=== PATIENT | female | born 1950 | race Caucasian/White ===

== ENCOUNTER 2019-10-13 10:14 | Inpatient (IN) | payer BC, MEDICARE ==
[~2019-10-13] VITALS: Ht 149.9 cm; Wt 60.5 kg
[~2019-10-13 10:14] MED LIST: ASPI-1393 PO; CLON0.3T PO; FURO-151 MT; INSU200I4 SQ; NIFE90TA34 PO; SIMV40TA5 PO
[2019-10-13] MEDS ORDERED: ASPIRIN 325MG TABLET PO NR (11:30)
[2019-10-13] MEDS ORDERED: HYDRALAZINE 20MG/ML VIAL IV NR (11:30)
[2019-10-13 11:42] LABS: BASOPHILS % 0.7 % (0.0-2.0); CHLORIDE 116 mEq/L (98-107); HEMATOCRIT. 30.6 % (36.0-48.0); LYMPHOCYTES % 7.3 % (20.0-50.0); MEAN CORPUSCULAR HEMOGLOBIN 28.8 pg (28.0-32.0); MEAN PLATELET VOLUME 8.3 fl (7.4-10.4); MONOCYTES % 2.7 % (2.0-8.0); NEUTROPHILS % 89.3 % (40.0-76.0); PLATELET 332 x1000/uL (130-400); RED BLOOD CELL COUNT 3.48 mill/uL (4.2-5.4); RED CELL DISTRIBUTION WIDTH 15.3 % (11.6-14.6)
[2019-10-13] MEDS ORDERED: ONDANSETRON HCL 4MG/2ML INJ IV ONE (11:45)
[2019-10-13] MEDS ORDERED: CLONIDINE 0.1MG TABLET PO PRN (14:15)
[2019-10-13] MEDS ORDERED: NA PHOS,M-B/NA PHOS,DI-BA ENEMA 118ML PR PRN (14:15)
[2019-10-13] MEDS ORDERED: GUAIFENESIN 200MG/10ML SUGAR FREE UDC PO PRN (14:15)
[2019-10-13] MEDS ORDERED: DIPHENHYDRAMINE 50MG/ML VIAL IV PRN (14:15)
[2019-10-13] MEDS ORDERED: DEXTROSE 50% WATER 50ML SYRINGE IV PRN (14:15)
[2019-10-13] MEDS ORDERED: IPRATROPIUM/ALBUTEROL 0.5-3(2.5)MG/3ML NEB NEB PRN (14:15)
[2019-10-13] MEDS ORDERED: HYDROCODONE/ACETAMINOPHEN 5/325MG TABLET PO PRN (14:15)
[2019-10-13] MEDS ORDERED: ACETAMINOPHEN 650MG SUPP PR PRN (14:15)
[2019-10-13] MEDS ORDERED: LORAZEPAM 0.5MG TABLET PO PRN (14:15)
[2019-10-13] MEDS: FAMOTIDINE 20MG/2ML VIAL IV SCH (16:30)
[2019-10-13] MEDS: DEXTROSE 5% WATER 1,000 ML IV SCH (16:31)
[2019-10-13] MEDS: NIFEDIPINE XL 90MG TAB PO SCH (16:36)
[2019-10-13 17:08] VITALS: BP 200/152
[2019-10-13] MEDS: INSULIN LISPRO 100 UNITS/ML SUBCUT SCH ×2 (17:15→20:14)
[2019-10-13] MEDS ORDERED: HYDRALAZINE 20MG/ML VIAL IV PRN (17:19)
[2019-10-13] MEDS: BLOOD SUGAR DIAGNOSTIC STRIP TEST SCH ×2 (17:26→20:18)
[2019-10-13] MEDS: ACETAMINOPHEN 325MG TABLET PO PRN (17:33)
[2019-10-13] MEDS: ENOXAPARIN 30MG/0.3ML SYR SUBCUT SCH (18:19)
[2019-10-13] MEDS: ONDANSETRON HCL 4MG/2ML INJ IV PRN (19:58)
[2019-10-13 20:00] VITALS: BP 172/65
[2019-10-13] MEDS: DOCUSATE SODIUM 100MG CAPSULE PO PRN (20:30)
[2019-10-13 20:35] LABS: CLARITY URINE CLOUDY (CLEAR); COLOR URINE YELLOW (YELLOW); KETONES URINE TRACE (NEGATIVE); LEUKOCYTE ESTERASE URINE TRACE (NEGATIVE); NITRITE URINE NEGATIVE (NEGATIVE); OCCULT BLOOD URINE TRACE (NEGATIVE); PH URINE 5.5 (4.5-8.0); PROTEIN URINE 4+ (NEGATIVE); SPECIFIC GRAVITY URINE 1.018 (1.005-1.030); UROBILINOGEN URINE 0.2 E.U./dL (0.2-1.0)
[2019-10-13 20:47] LABS: CANNABINOID URINE SCREEN NEGATIVE (NEGATIVE); METHADONE URINE SCREEN NEGATIVE (NEGATIVE); OPIATES URINE SCREEN NEGATIVE (NEGATIVE); PHENCYCLIDINE URINE SCREEN NEGATIVE (NEGATIVE)
[2019-10-13 20:48] LABS: *AMPHETAMINES SCREEN URINE NEGATIVE (NEGATIVE); *BARBITURATES SCREEN URINE NEGATIVE (NEGATIVE); *BENZODIAZEPINES SCREEN URINE NEGATIVE (NEGATIVE); *COCAINE SCREEN URINE NEGATIVE (NEGATIVE)
[2019-10-13 21:35] VITALS: BP 134/47
[2019-10-14] VITALS (7 sets, daily range): BP systolic 103–155; BP diastolic 47–66
[2019-10-14] MEDS: ENALAPRIL 2.5MG/2ML VIAL 2ML IV SCH ×3 (00:18→12:00)
[2019-10-14 01:15] LABS: CREATINE KINASE MB FRACTION 2.1 ng/mL (0.5-3.6)
[2019-10-14] MEDS: ACETAMINOPHEN 325MG TABLET PO PRN (04:44)
[2019-10-14] MEDS: DEXTROSE 5% WATER 1,000 ML IV SCH (06:13)
[2019-10-14] MEDS: BLOOD SUGAR DIAGNOSTIC STRIP TEST SCH ×4 (06:25→21:50)
[2019-10-14] MEDS: INSULIN LISPRO 100 UNITS/ML SUBCUT SCH ×4 (06:25→21:00)
[2019-10-14 07:38] LABS: EOSINOPHILS % 2.2 % (0.0-5.0); HEMATOCRIT. 26.5 % (36.0-48.0); HEMOGLOBIN. 8.8 g/dL (12.0-16.0); LYMPHOCYTES % 23.3 % (20.0-50.0); MEAN CORPUSCULAR HEMOGLOBIN 29.2 pg (28.0-32.0); MEAN CORPUSCULAR VOLUME 87.4 fL (81.0-99.0); MEAN PLATELET VOLUME 7.6 fl (7.4-10.4); NEUTROPHILS % 65.5 % (40.0-76.0); PLATELET 261 x1000/uL (130-400); RED BLOOD CELL COUNT 3.03 mill/uL (4.2-5.4); RED CELL DISTRIBUTION WIDTH 15.4 % (11.6-14.6)
[2019-10-14 07:49] LABS: CHLORIDE 109 mEq/L (98-107)
[2019-10-14 08:03] LABS: LDL CHOLESTEROL 90 mg/dL (5-100)
[2019-10-14 08:04] LABS: CREATINE KINASE 131 IU/L (26-192); CREATINE KINASE MB FRACTION 2.1 ng/mL (0.5-3.6); HDL CHOLESTEROL 78 mg/dL (40-59)
[2019-10-14] MEDS: ASPIRIN 81MG EC TABLET PO SCH (08:49)
[2019-10-14] MEDS: NIFEDIPINE XL 90MG TAB PO SCH (08:49)
[2019-10-14] MEDS: FAMOTIDINE 20MG/2ML VIAL IV SCH (08:49)
[2019-10-14] MEDS: LACTULOSE 20G/30ML UDC PO SCH (14:02)
[2019-10-14] MEDS: CLONIDINE 0.1MG TABLET PO SCH ×2 (14:03→23:40)
[2019-10-14] MEDS ORDERED: LEVOFLOXACIN 750MG PREMIX 150 ML IV NR (16:00)
[2019-10-14] MEDS: ONDANSETRON HCL 4MG/2ML INJ IV PRN ×2 (17:08→21:50)
[2019-10-14] MEDS: SODIUM CHLORIDE 0.45% 1,000 ML IV SCH (17:08)
[2019-10-14] MEDS: ENOXAPARIN 30MG/0.3ML SYR SUBCUT SCH (17:09)
[2019-10-15] VITALS: BP 142/62
[2019-10-15 04:00] VITALS: BP 149/58
[2019-10-15] MEDS: SODIUM CHLORIDE 0.45% 1,000 ML IV SCH ×3 (04:06→22:32)
[2019-10-15] MEDS: BLOOD SUGAR DIAGNOSTIC STRIP TEST SCH ×4 (05:32→20:45)
[2019-10-15] MEDS: CLONIDINE 0.1MG TABLET PO SCH ×3 (05:32→21:50)
[2019-10-15] MEDS: INSULIN LISPRO 100 UNITS/ML SUBCUT SCH ×4 (05:32→21:00)
[2019-10-15 06:02] LABS: BASOPHILS % 0.9 % (0.0-2.0); EOSINOPHILS % 1.7 % (0.0-5.0); HEMATOCRIT. 26.7 % (36.0-48.0); HEMOGLOBIN. 8.8 g/dL (12.0-16.0); LYMPHOCYTES % 17.4 % (20.0-50.0); MEAN CORPUSCULAR HEMOGLOBIN 28.6 pg (28.0-32.0); MEAN CORPUSCULAR VOLUME 87.2 fL (81.0-99.0); MEAN PLATELET VOLUME 7.2 fl (7.4-10.4); PLATELET 228 x1000/uL (130-400); RED BLOOD CELL COUNT 3.06 mill/uL (4.2-5.4); RED CELL DISTRIBUTION WIDTH 15.3 % (11.6-14.6)
[2019-10-15 08:00] VITALS: BP 153/57
[2019-10-15] MEDS: LACTULOSE 20G/30ML UDC PO SCH (09:00)
[2019-10-15] MEDS: FAMOTIDINE 20MG/2ML VIAL IV SCH (09:56)
[2019-10-15] MEDS: NIFEDIPINE XL 90MG TAB PO SCH (09:56)
[2019-10-15] MEDS: MAGNESIUM/ALUMINUM HYDROXIDE/SIMETHICONE 30ML UDC PO PRN (09:56)
[2019-10-15] MEDS: ASPIRIN 81MG EC TABLET PO SCH (09:56)
[2019-10-15 12:00] VITALS: BP 122/56
[2019-10-15] MEDS ORDERED: MAGNESIUM 1 G PREMIX 100 ML IV NR (13:00)
[2019-10-15 16:00] VITALS: BP 125/58
[2019-10-15] MEDS: ENOXAPARIN 30MG/0.3ML SYR SUBCUT SCH (18:00)
[2019-10-15 18:07] LABS: HEMATOCRIT 25.8 % (36.0-48.0); HEMOGLOBIN 8.4 g/dL (12.0-16.0)
[2019-10-15 18:45] LABS: TOTAL IRON BINDING CAPACITY 229 ug/dL (250-450)
[2019-10-15] MEDS: DOCUSATE SODIUM 100MG CAPSULE PO PRN (18:45)
[2019-10-15 20:00] VITALS: BP 164/46
[2019-10-16] VITALS: BP 126/45
[2019-10-16] MEDS: ONDANSETRON HCL 4MG/2ML INJ IV PRN (03:46)
[2019-10-16] MEDS: BLOOD SUGAR DIAGNOSTIC STRIP TEST SCH ×3 (06:45→16:54)
[2019-10-16] MEDS: INSULIN LISPRO 100 UNITS/ML SUBCUT SCH ×3 (07:15→16:55)
[2019-10-16 07:21] LABS: HEMATOCRIT 26.1 % (36.0-48.0); MEAN CORPUSCULAR HEMOGLOBIN 29.9 pg (28.0-32.0); MEAN CORPUSCULAR VOLUME 86.8 fL (81.0-99.0); PLATELET 217 x1000/uL (130-400); RED BLOOD CELL COUNT 3.01 mill/uL (4.2-5.4); RED CELL DISTRIBUTION WIDTH 15.1 % (11.6-14.6)
[2019-10-16 08:00] VITALS: BP 168/48
[2019-10-16] MEDS: CLONIDINE 0.1MG TABLET PO SCH ×3 (08:12→17:32)
[2019-10-16] MEDS: LACTULOSE 20G/30ML UDC PO SCH (09:00)
[2019-10-16] MEDS: FAMOTIDINE 20MG/2ML VIAL IV SCH (09:38)
[2019-10-16] MEDS: ASPIRIN 81MG EC TABLET PO SCH (09:38)
[2019-10-16] MEDS: NIFEDIPINE XL 90MG TAB PO SCH (09:38)
[2019-10-16] MEDS: DOCUSATE SODIUM 100MG CAPSULE PO PRN (09:38)
[2019-10-16] MEDS: MAGNESIUM/ALUMINUM HYDROXIDE/SIMETHICONE 30ML UDC PO PRN (09:38)
[2019-10-16] MEDS: SODIUM CHLORIDE 0.45% 1,000 ML IV SCH (09:41)
[2019-10-16] MEDS ORDERED: LEVOFLOXACIN 500MG PREMIX 100 ML IV SCH (11:00)
[2019-10-16 12:00] VITALS: BP 179/62
[2019-10-16] MEDS: FERROUS SULFATE 325MG TABLET PO SCH ×2 (12:02→17:32)
[2019-10-16] MEDS ORDERED: METOPROLOL TARTRATE 25MG TABLET PO NR (15:00)
[2019-10-16 16:00] VITALS: BP 123/97
[2019-10-16] MEDS ORDERED: SULFAMETHOXAZOLE/TRIMETHOPRIM 800/160MG TABLET PO SCH (16:00)
[2019-10-16 17:03] VITALS: BP 122/52
[2019-10-16] MEDS ORDERED: METOPROLOL TARTRATE 25MG TABLET PO SCH (21:00)
== END 2019-10-16 18:18 | disposition home or self-care (01) | DRG 291 ==
LOC: ER 10:14 → 5WST 12:07 → SUPCPDRO 13:30 → ENRESERV 15:28
PROVIDERS: ADMIT Internal Medicine; ATTEND Internal Medicine
DX: I13.0 Hypertensive heart and chronic kidney disease with heart failure and stage 1 through stage 4 chronic kidney disease, or unspecified chronic kidney disease (principal); I50.33 Acute on chronic diastolic (congestive) heart failure; N17.9 Acute kidney failure, unspecified; I16.1 Hypertensive emergency; N39.0 Urinary tract infection, site not specified; I31.3 Pericardial effusion (noninflammatory); D64.9 Anemia, unspecified; E11.22 Type 2 diabetes mellitus with diabetic chronic kidney disease; E78.5 Hyperlipidemia, unspecified; E86.0 Dehydration; F41.9 Anxiety disorder, unspecified; N18.9 Chronic kidney disease, unspecified; K57.90 Diverticulosis of intestine, part unspecified, without perforation or abscess without bleeding; I44.0 Atrioventricular block, first degree; I25.10 Atherosclerotic heart disease of native coronary artery without angina pectoris; I25.2 Old myocardial infarction; Z79.899 Other long term (current) drug therapy; Z82.49 Family history of ischemic heart disease and other diseases of the circulatory system; Z87.442 Personal history of urinary calculi; Z79.82 Long term (current) use of aspirin
CPT/HCPCS: 36415; 71045; 74176; 76770; 80048; 80061; 80305; 81003; 82270; 82550; 82553; 82962; 83540; 83550; 83735; 83880; 84439; 84443; 84484; 85014; 85018; 85027; 87077; 87186; 87804; 93005; 99285; C1893; J0360; J1650; J1956; J2405; J3475; J3490; J7070

== ENCOUNTER 2019-11-25 12:09 | Emergency (ER) | payer BC, MEDICARE ==
[~2019-11-25] VITALS: Ht 149.9 cm; Wt 67.0 kg
[~2019-11-25 12:09] MED LIST changes: -ASPI-1393 PO; +ASPI-1497 PO; -CLON0.3T PO; -FURO-151 MT; -NIFE90TA34 PO; +NIFE90TA60 PO; +SIMV-46 PO; -SIMV40TA5 PO
[2019-11-25 15:16] LABS: BASOPHILS % 0.4 % (0.0-2.0); EOSINOPHILS % 3.6 % (0.0-5.0); HEMATOCRIT. 29.9 % (36.0-48.0); HEMOGLOBIN. 9.9 g/dL (12.0-16.0); LYMPHOCYTES % 26.2 % (20.0-50.0); MEAN CORPUSCULAR HEMOGLOBIN 28.4 pg (28.0-32.0); MEAN CORPUSCULAR VOLUME 85.9 fL (81.0-99.0); MEAN PLATELET VOLUME 7.9 fl (7.4-10.4); MONOCYTES % 7.4 % (2.0-8.0); NEUTROPHILS % 62.4 % (40.0-76.0); PLATELET 266 x1000/uL (130-400); RED BLOOD CELL COUNT 3.48 mill/uL (4.2-5.4); RED CELL DISTRIBUTION WIDTH 15.8 % (11.6-14.6)
[2019-11-25 15:17] LABS: INR 0.9; PROTHROMBIN TIME 9.4 sec (9.6-11.0)
[2019-11-25 15:20] LABS: CHLORIDE 114 mEq/L (98-107)
[2019-11-25] MEDS ORDERED: SODIUM POLYSTYRENE SULFONATE 15 G/60 ML BOT PO ONE (16:15)
[2019-11-25 16:46] VITALS: BP 129/61
== END 2019-11-25 16:50 | disposition home or self-care (01) ==
LOC: ER 12:09
DX: R79.9 Abnormal finding of blood chemistry, unspecified (principal); E11.9 Type 2 diabetes mellitus without complications; I10 Essential (primary) hypertension; Z79.899 Other long term (current) drug therapy; Z90.49 Acquired absence of other specified parts of digestive tract; Z79.4 Long term (current) use of insulin; Z79.82 Long term (current) use of aspirin
CPT/HCPCS: 36415; 71045; 80053; 82962; 85025; 93005; 99284

== ENCOUNTER 2019-12-25 03:10 | Inpatient (IN) | payer BC, MEDICARE ==
[~2019-12-25] VITALS: Ht 149.9 cm; Wt 92.1 kg
[2019-12-25] MEDS ORDERED: KETOROLAC 30MG/ML VIAL IV STA (06:58)
[2019-12-25] MEDS ORDERED: SODIUM CHLORIDE 0.9% 1,000 ML IV ONE (06:58)
[2019-12-25 08:13] LABS: BASOPHILS % 0.6 % (0.0-2.0); EOSINOPHILS % 3.9 % (0.0-5.0); HEMATOCRIT. 31.4 % (36.0-48.0); HEMOGLOBIN. 10.7 g/dL (12.0-16.0); LYMPHOCYTES % 31.3 % (20.0-50.0); MEAN CORPUSCULAR HEMOGLOBIN 28.6 pg (28.0-32.0); MEAN CORPUSCULAR VOLUME 84.5 fL (81.0-99.0); MEAN PLATELET VOLUME 7.5 fl (7.4-10.4); MONOCYTES % 7.5 % (2.0-8.0); NEUTROPHILS % 56.7 % (40.0-76.0); PLATELET 273 x1000/uL (130-400); RED BLOOD CELL COUNT 3.72 mill/uL (4.2-5.4); RED CELL DISTRIBUTION WIDTH 16.3 % (11.6-14.6)
[2019-12-25 08:24] LABS: CHLORIDE 115 mEq/L (98-107)
[2019-12-25 08:41] LABS: CLARITY URINE TURBID (CLEAR); COLOR URINE YELLOW (YELLOW); KETONES URINE NEGATIVE (NEGATIVE); LEUKOCYTE ESTERASE URINE 2+ (NEGATIVE); NITRITE URINE POSITIVE (NEGATIVE); OCCULT BLOOD URINE TRACE (NEGATIVE); PROTEIN URINE 3+ (NEGATIVE); SPECIFIC GRAVITY URINE 1.012 (1.005-1.030); UROBILINOGEN URINE 0.2 E.U./dL (0.2-1.0)
[2019-12-25] MEDS ORDERED: CLONIDINE 0.2MG TABLET PO ONE (08:45)
[2019-12-25] MEDS ORDERED: CEFTRIAXONE 1 G PREMIX 50 ML IV ONE (09:15)
[2019-12-25] MEDS ORDERED: NA PHOS,M-B/NA PHOS,DI-BA ENEMA 118ML PR PRN (12:30)
[2019-12-25] MEDS ORDERED: ONDANSETRON HCL 4MG/2ML INJ IV PRN (12:30)
[2019-12-25] MEDS ORDERED: DEXTROSE 50% WATER 50ML SYRINGE IV PRN (12:30)
[2019-12-25] MEDS ORDERED: LORAZEPAM 0.5MG TABLET PO PRN (12:30)
[2019-12-25] MEDS ORDERED: ACETAMINOPHEN 325MG TABLET PO PRN (12:30)
[2019-12-25] MEDS ORDERED: GUAIFENESIN 200MG/10ML SUGAR FREE UDC PO PRN (12:30)
[2019-12-25] MEDS ORDERED: HYDROCODONE/ACETAMINOPHEN 5/325MG TABLET PO PRN (12:30)
[2019-12-25] MEDS ORDERED: DOCUSATE SODIUM 100MG CAPSULE PO PRN (12:30)
[2019-12-25] MEDS ORDERED: ACETAMINOPHEN 650MG/20.3ML UDC GT PRN (12:30)
[2019-12-25] MEDS ORDERED: IPRATROPIUM/ALBUTEROL 0.5-3(2.5)MG/3ML NEB NEB PRN (12:30)
[2019-12-25] MEDS ORDERED: MAGNESIUM/ALUMINUM HYDROXIDE/SIMETHICONE 30ML UDC PO PRN (12:30)
[2019-12-25] MEDS ORDERED: DIPHENHYDRAMINE 50MG/ML VIAL IV PRN (12:30)
[2019-12-25 14:30] VITALS: BP 119/56
[2019-12-25] MEDS: HYDRALAZINE 20MG/ML VIAL IV NR ×2 (15:30→20:46)
[2019-12-25] MEDS: DEXT 5%/0.45% NACL 1000ML 1,000 ML IV SCH ×2 (16:14→22:35)
[2019-12-25] MEDS ORDERED: LEVOFLOXACIN 500MG PREMIX 100 ML IV NR (17:00)
[2019-12-25] MEDS: BLOOD SUGAR DIAGNOSTIC STRIP TEST SCH ×2 (17:34→20:43)
[2019-12-25 17:58] LABS: INR 0.9
[2019-12-25] MEDS ORDERED: HYDR25TA PO (18:40)
[2019-12-25] MEDS ORDERED: LOSA50TA41 PO (18:40)
[2019-12-25] MEDS ORDERED: METO25TA6 PO (18:40)
[2019-12-25] MEDS ORDERED: GLIM4TAB36 PO (18:40)
[2019-12-25] MEDS ORDERED: FERR325T6 PO (18:40)
[2019-12-25] MEDS ORDERED: CLON0.3T PO (18:40)
[2019-12-25] MEDS ORDERED: POLYETHYLENE GLYCOL 3350 (17GM) 1 DOSE PACK PO PRN (18:45)
[2019-12-25 20:00] VITALS: BP 207/67
[2019-12-25] MEDS: ENOXAPARIN 30MG/0.3ML SYR SUBCUT SCH (20:47)
[2019-12-25 21:28] VITALS: BP 111/72
[2019-12-25 22:00] LABS: *AMPHETAMINES SCREEN URINE NEGATIVE (NEGATIVE); *BARBITURATES SCREEN URINE NEGATIVE (NEGATIVE); *BENZODIAZEPINES SCREEN URINE NEGATIVE (NEGATIVE); *COCAINE SCREEN URINE NEGATIVE (NEGATIVE)
[2019-12-25 22:02] LABS: CANNABINOID URINE SCREEN NEGATIVE (NEGATIVE); METHADONE URINE SCREEN NEGATIVE (NEGATIVE); OPIATES URINE SCREEN NEGATIVE (NEGATIVE); PHENCYCLIDINE URINE SCREEN NEGATIVE (NEGATIVE)
[2019-12-25] MEDS: CLONIDINE 0.1MG TABLET PO PRN (23:29)
[2019-12-26] VITALS (7 sets, daily range): BP systolic 169–214; BP diastolic 55–87
[2019-12-26] MEDS: HYDRALAZINE 20MG/ML VIAL IV PRN ×3 (04:34→17:38)
[2019-12-26 06:07] LABS: BASOPHILS % 0.8 % (0.0-2.0); EOSINOPHILS % 3.3 % (0.0-5.0); HEMATOCRIT. 32.6 % (36.0-48.0); HEMOGLOBIN. 11.1 g/dL (12.0-16.0); LYMPHOCYTES % 27.7 % (20.0-50.0); MEAN CORPUSCULAR HEMOGLOBIN 28.8 pg (28.0-32.0); MEAN CORPUSCULAR VOLUME 84.1 fL (81.0-99.0); MEAN PLATELET VOLUME 7.8 fl (7.4-10.4); MONOCYTES % 4.7 % (2.0-8.0); NEUTROPHILS % 63.5 % (40.0-76.0); PLATELET 289 x1000/uL (130-400); RED BLOOD CELL COUNT 3.87 mill/uL (4.2-5.4); RED CELL DISTRIBUTION WIDTH 16.6 % (11.6-14.6)
[2019-12-26] MEDS: BLOOD SUGAR DIAGNOSTIC STRIP TEST SCH ×4 (06:34→21:00)
[2019-12-26 06:52] LABS: CHLORIDE 115 mEq/L (98-107)
[2019-12-26 07:04] LABS: LDL CHOLESTEROL 201 mg/dL (5-100)
[2019-12-26 07:05] LABS: HDL CHOLESTEROL 60 mg/dL (40-59)
[2019-12-26] MEDS: DEXT 5%/0.45% NACL 1000ML 1,000 ML IV SCH ×2 (08:06→16:53)
[2019-12-26] MEDS: ENOXAPARIN 30MG/0.3ML SYR SUBCUT SCH ×2 (08:06→21:14)
[2019-12-26] MEDS: CLONIDINE 0.1MG TABLET PO PRN ×2 (08:06→14:05)
[2019-12-26] MEDS: FUROSEMIDE 40MG/4ML VIAL IVP NR ×2 (12:45→15:27)
[2019-12-26] MEDS: LOSARTAN POTASSIUM 50 MG TABLET PO SCH (12:48)
[2019-12-26] MEDS ORDERED: LEVOFLOXACIN 250MG PREMIX 50 ML IV SCH (14:00)
[2019-12-26] MEDS ORDERED: DEXTROSE 50% WATER 50ML SYRINGE IV PRN ×2 (14:30→14:45)
[2019-12-26] MEDS: MORPHINE SULFATE 2 MG/ML CPJ (NOT FOR IM USE) IV PRN ×2 (17:00→19:02)
[2019-12-26] MEDS ORDERED: BLOOD SUGAR DIAGNOSTIC STRIP TEST SCH (17:20)
[2019-12-26] MEDS: INSULIN LISPRO 100 UNITS/ML SUBCUT SCH ×2 (17:42→21:00)
[2019-12-26] MEDS ORDERED: INSULIN LISPRO 100 UNITS/ML SUBCUT SCH (17:50)
[2019-12-27] VITALS: BP 188/56
[2019-12-27] MEDS: CLONIDINE 0.1MG TABLET PO PRN ×2 (01:15→13:07)
[2019-12-27 04:00] VITALS: BP 156/52
[2019-12-27] MEDS: DEXT 5%/0.45% NACL 1000ML 1,000 ML IV SCH ×2 (05:24→14:30)
[2019-12-27] MEDS: BLOOD SUGAR DIAGNOSTIC STRIP TEST SCH ×3 (07:20→17:20)
[2019-12-27 08:12] VITALS: BP 143/38
[2019-12-27] MEDS ORDERED: NIFEDIPINE XL 90MG TAB PO SCH (09:00)
[2019-12-27] MEDS: LOSARTAN POTASSIUM 50 MG TABLET PO SCH (09:22)
[2019-12-27] MEDS: ENOXAPARIN 30MG/0.3ML SYR SUBCUT SCH (09:23)
[2019-12-27] MEDS: INSULIN LISPRO 100 UNITS/ML SUBCUT SCH ×3 (09:29→18:54)
[2019-12-27 12:20] VITALS: BP 182/65
[2019-12-27 16:10] VITALS: BP 134/44
[2019-12-27] MEDS ORDERED: NITR100C MT (17:23)
[2019-12-27 19:33] VITALS: BP 157/57
== END 2019-12-27 20:05 | disposition home or self-care (01) | DRG 693 ==
LOC: ER 03:10 → 6WST 10:11 → ENRESERV 13:02
PROVIDERS: ADMIT Internal Medicine; ATTEND Internal Medicine
DX: N20.0 Calculus of kidney (principal); I50.33 Acute on chronic diastolic (congestive) heart failure; N10 Acute pyelonephritis; I13.0 Hypertensive heart and chronic kidney disease with heart failure and stage 1 through stage 4 chronic kidney disease, or unspecified chronic kidney disease; N18.9 Chronic kidney disease, unspecified; E11.22 Type 2 diabetes mellitus with diabetic chronic kidney disease; E11.649 Type 2 diabetes mellitus with hypoglycemia without coma; E78.5 Hyperlipidemia, unspecified; F41.9 Anxiety disorder, unspecified; K57.90 Diverticulosis of intestine, part unspecified, without perforation or abscess without bleeding; E86.0 Dehydration; I25.10 Atherosclerotic heart disease of native coronary artery without angina pectoris; D64.9 Anemia, unspecified; E78.00 Pure hypercholesterolemia, unspecified; B96.20 Unspecified Escherichia coli [E. coli] as the cause of diseases classified elsewhere; N30.90 Cystitis, unspecified without hematuria; Z87.442 Personal history of urinary calculi
CPT/HCPCS: 36415; 71045; 74176; 80053; 80061; 80305; 81003; 82962; 83036; 84439; 84443; 84484; 85025; 87077; 87186; 93005; 93306; 93970; 97162; 99285; J0360; J0696; J1650; J1815; J1885; J1940; J1956; J2270; J2405; J7030

== ENCOUNTER 2020-11-01 10:44 | Inpatient (IN) | payer MEDICARE, BC ==
[~2020-11-01] VITALS: Ht 152.4 cm; Wt 72.6 kg
[~2020-11-01 10:44] MED LIST changes: +CLON0.3T PO; +FERR325T6 PO; +GLIM4TAB36 PO; +HYDR25TA PO; +LOSA50TA41 PO; +METO25TA6 PO; +NITR100C MT
[2020-11-01] MEDS ORDERED: PREDNISONE 20MG TABLET PO STA (11:05)
[2020-11-01] MEDS ORDERED: ALBUTEROL (0.083%) 2.5MG/3ML NEB HHN STA (11:05)
[2020-11-01] MEDS ORDERED: IPRATROPIUM BROMIDE (0.02%) 0.5MG/2.5ML NEB HHN STA (11:05)
[2020-11-01 11:51] LABS: BASOPHILS % 0.4 % (0.0-2.0); EOSINOPHILS % 0.2 % (0.0-5.0); HEMOGLOBIN. 10.2 g/dL (12.0-16.0); LYMPHOCYTES % 21.1 % (20.0-50.0); MEAN CORPUSCULAR HEMOGLOBIN 28.6 pg (28.0-32.0); MEAN CORPUSCULAR VOLUME 89.4 fL (81.0-99.0); MEAN PLATELET VOLUME 8.2 fl (7.4-10.4); MONOCYTES % 10.8 % (2.0-8.0); NEUTROPHILS % 67.5 % (40.0-76.0); PLATELET 294 x1000/uL (130-400); RED BLOOD CELL COUNT 3.58 mill/uL (4.2-5.4); RED CELL DISTRIBUTION WIDTH 15.8 % (11.6-14.6)
[2020-11-01 11:56] LABS: CHLORIDE 109 mEq/L (98-107)
[2020-11-01] MEDS ORDERED: LABETALOL HCL 20MG/4ML CARPUJECT IV ONE (12:15)
[2020-11-01 13:08] LABS: CLARITY URINE CLEAR (CLEAR); COLOR URINE YELLOW (YELLOW); KETONES URINE NEGATIVE (NEGATIVE); LEUKOCYTE ESTERASE URINE TRACE (NEGATIVE); NITRITE URINE NEGATIVE (NEGATIVE); OCCULT BLOOD URINE NEGATIVE (NEGATIVE); PROTEIN URINE 3+ (NEGATIVE); SPECIFIC GRAVITY URINE 1.013 (1.005-1.030); UROBILINOGEN URINE 0.2 E.U./dL (0.2-1.0)
[2020-11-01] MEDS ORDERED: CEFTRIAXONE 1 G PREMIX 50 ML IV ONE (14:15)
[2020-11-01] MEDS ORDERED: SODIUM CHLORIDE 0.9% 1,000 ML IV ONE (14:15)
[2020-11-01] MEDS: FAMOTIDINE 20MG/2ML VIAL IV SCH (15:00)
[2020-11-01] MEDS ORDERED: MAGNESIUM/ALUMINUM HYDROXIDE/SIMETHICONE 30ML UDC PO PRN (15:00)
[2020-11-01] MEDS ORDERED: CEFTRIAXONE 1 G PREMIX 50 ML IV SCH (15:00)
[2020-11-01] MEDS ORDERED: HYDROCODONE/ACETAMINOPHEN 5/325MG TABLET PO PRN (15:00)
[2020-11-01] MEDS ORDERED: DOCUSATE SODIUM 100MG CAPSULE PO PRN (15:00)
[2020-11-01] MEDS ORDERED: ACETAMINOPHEN 650MG SUPP PR PRN (15:00)
[2020-11-01] MEDS ORDERED: ONDANSETRON HCL 4MG/2ML INJ IV PRN (15:00)
[2020-11-01] MEDS ORDERED: GUAIFENESIN 200MG/10ML SUGAR FREE UDC PO PRN (15:00)
[2020-11-01 15:58] LABS: BG BASE EXCESS -8.9 mmol/L (-2.0-2.0); BG CARBOXYHEMOGLOBIN 0.3 % (0.5-1.5); BG DEOXYHEMOGLOBIN 3.8 % (0.0-5.0); BG HCO3 ACT 16.9 mmol/L (22.0-26.0); BG METHEMOGLOBIN 0.2 % (0.0-1.5); BG OXYGEN SATURATION 96.2 % (92.0-98.5); BG OXYHEMOGLOBIN 95.7 % (94.0-97.0); BG PO2 88.6 mmHg (75.0-100.0); BG SAMPLE SITE RIGHT RADIAL; BG TOTAL HEMOGLOBIN 9.7 g/dL (12.0-18.0); BG VENT MODE ROOM AIR
[2020-11-01] MEDS ORDERED: AZITHROMYCIN 500 MG in DEXT 5% WATER 250 ML IV SCH (16:00)
[2020-11-01] MEDS: AMLODIPINE 5MG TABLET PO SCH (16:02)
[2020-11-01] MEDS: ENOXAPARIN 30MG/0.3ML SYR SUBCUT SCH (16:03)
[2020-11-01] MEDS: BLOOD SUGAR DIAGNOSTIC STRIP TEST SCH ×2 (16:56→21:29)
[2020-11-01] MEDS: INSULIN LISPRO 100 UNITS/ML SUBCUT SCH ×2 (17:09→21:00)
[2020-11-01] MEDS: SODIUM CHLORIDE 0.45% 1,000 ML IV SCH (17:10)
[2020-11-01] MEDS: DEXTROSE 50% WATER 50ML SYRINGE IV PRN ×2 (17:19→21:51)
[2020-11-01] MEDS: HYDRALAZINE 20MG/ML VIAL IV PRN (23:23)
[2020-11-02] MEDS: LORAZEPAM 0.5MG TABLET PO PRN ×2 (02:43→18:08)
[2020-11-02] MEDS: CLONIDINE 0.1MG TABLET PO PRN (05:55)
[2020-11-02 06:05] LABS: BASOPHILS % 0.2 % (0.0-2.0); EOSINOPHILS % 0.1 % (0.0-5.0); HEMOGLOBIN. 9.5 g/dL (12.0-16.0); LYMPHOCYTES % 10.4 % (20.0-50.0); MEAN CORPUSCULAR HEMOGLOBIN 28.7 pg (28.0-32.0); MEAN CORPUSCULAR VOLUME 87.4 fL (81.0-99.0); MEAN PLATELET VOLUME 8.1 fl (7.4-10.4); NEUTROPHILS % 82.3 % (40.0-76.0); PLATELET 257 x1000/uL (130-400); RED BLOOD CELL COUNT 3.32 mill/uL (4.2-5.4); RED CELL DISTRIBUTION WIDTH 15.9 % (11.6-14.6)
[2020-11-02 06:10] LABS: CHLORIDE 113 mEq/L (98-107)
[2020-11-02 06:28] LABS: LDL CHOLESTEROL 158 mg/dL (5-100)
[2020-11-02 06:30] LABS: HDL CHOLESTEROL 46 mg/dL (40-59); T4 FREE 1.16 ng/dL (0.76-1.46)
[2020-11-02] MEDS: BLOOD SUGAR DIAGNOSTIC STRIP TEST SCH ×3 (06:37→17:21)
[2020-11-02] MEDS: INSULIN LISPRO 100 UNITS/ML SUBCUT SCH ×3 (06:37→17:21)
[2020-11-02] MEDS: HYDRALAZINE 20MG/ML VIAL IV PRN (07:08)
[2020-11-02] MEDS: SODIUM CHLORIDE 0.45% 1,000 ML IV SCH (08:40)
[2020-11-02] MEDS: ENOXAPARIN 30MG/0.3ML SYR SUBCUT SCH ×2 (09:14→21:46)
[2020-11-02] MEDS: FAMOTIDINE 20MG/2ML VIAL IV SCH (09:14)
[2020-11-02] MEDS: AMLODIPINE 5MG TABLET PO SCH ×2 (09:14→21:45)
[2020-11-02] MEDS: MORPHINE SULFATE 2 MG/ML CPJ (NOT FOR IM USE) IV PRN (09:15)
[2020-11-02] MEDS ORDERED: CARVEDILOL 3.125 MG TABLET PO NR (10:45)
[2020-11-02] MEDS ORDERED: METOPROLOL TARTRATE 5MG/5ML VIAL IV NR (12:49)
[2020-11-02] MEDS ORDERED: ASPIRIN 81MG TABLET PO NR (12:49)
[2020-11-02] MEDS ORDERED: NITROGLYCERIN OINT 1GM/INCH UDPKT TD NR (13:00)
[2020-11-02] MEDS ORDERED: SODIUM POLYSTYRENE SULFONATE 15 G/60 ML BOT PO NR (14:00)
[2020-11-02 14:07] LABS: BG BASE EXCESS -10.8 mmol/L (-2.0-2.0); BG CARBOXYHEMOGLOBIN 0.3 % (0.5-1.5); BG DEOXYHEMOGLOBIN 7.2 % (0.0-5.0); BG FRACTION INSPIRED OXYGEN 32; BG HCO3 ACT 14.4 mmol/L (22.0-26.0); BG METHEMOGLOBIN 0.1 % (0.0-1.5); BG OXYGEN SATURATION 92.8 % (92.0-98.5); BG OXYHEMOGLOBIN 92.4 % (94.0-97.0); BG PCO2 29.8 mmHg (35.0-45.0); BG PH 7.301 (7.350-7.450); BG PO2 67.5 mmHg (75.0-100.0); BG SAMPLE SITE RIGHT BRACHIAL; BG TOTAL HEMOGLOBIN 10.4 g/dL (12.0-18.0); BG VENT MODE NASAL CANNULA
[2020-11-02] MEDS ORDERED: CEFTRIAXONE 1 G PREMIX 50 ML IV SCH (15:00)
[2020-11-02 16:00] VITALS: BP 157/76
[2020-11-02 16:23] VITALS: BP 165/76
[2020-11-02] MEDS: HYDRALAZINE HCL 50MG TABLET PO SCH (16:41)
[2020-11-02] MEDS: NEBIVOLOL HCL 5 MG TABLET PO SCH ×2 (16:41→21:45)
[2020-11-02] MEDS: AZITHROMYCIN 500 MG in DEXT 5% WATER 250 ML IV SCH (17:55)
[2020-11-02] MEDS ORDERED: SODIUM BICARBONATE 8.4% 1 MEQ/ML 50ML SYR IV NR (18:00)
[2020-11-02] MEDS: DEXAMETHASONE 10 MG/ML VIAL IV SCH (18:31)
[2020-11-02] MEDS ORDERED: FUROSEMIDE 40MG/4ML VIAL IVP NR (19:00)
[2020-11-02 19:55] LABS: D-DIMER 2.31 mg/L FEU (<0.50); INR 1.1; PROTHROMBIN TIME 11.4 sec (9.6-11.0)
[2020-11-02 19:59] LABS: CREATINE KINASE MB FRACTION 13.6 ng/mL (0.5-3.6)
[2020-11-02 20:03] LABS: FIBRINOGEN > 900 mg/dL (200-400)
[2020-11-02 20:56] LABS: BG BASE EXCESS -7.6 mmol/L (-2.0-2.0); BG CARBOXYHEMOGLOBIN 0.2 % (0.5-1.5); BG DEOXYHEMOGLOBIN 1.4 % (0.0-5.0); BG FRACTION INSPIRED OXYGEN 100; BG HCO3 ACT 18.9 mmol/L (22.0-26.0); BG METHEMOGLOBIN 0.2 % (0.0-1.5); BG OXYGEN SATURATION 98.6 % (92.0-98.5); BG OXYHEMOGLOBIN 98.2 % (94.0-97.0); BG PCO2 42.6 mmHg (35.0-45.0); BG PH 7.266 (7.350-7.450); BG PO2 151.3 mmHg (75.0-100.0); BG SAMPLE SITE LEFT RADIAL; BG VENT MODE MASK - BIPAP
[2020-11-02] MEDS ORDERED: CARVEDILOL 3.125 MG TABLET PO SCH (21:00)
[2020-11-02] MEDS: ASPIRIN 81MG TABLET PO SCH (21:45)
[2020-11-03] VITALS (57 sets, daily range): BP systolic 126–187; BP diastolic 46–137
[2020-11-03] MEDS: LORAZEPAM 0.5MG TABLET PO PRN (00:46)
[2020-11-03] MEDS: SODIUM CHLORIDE 0.45% 1,000 ML IV SCH (04:22)
[2020-11-03 06:20] LABS: HEMATOCRIT. 28.2 % (36.0-48.0); HEMOGLOBIN. 9.1 g/dL (12.0-16.0); MEAN CORPUSCULAR HEMOGLOBIN 28.5 pg (28.0-32.0); MEAN CORPUSCULAR VOLUME 87.9 fL (81.0-99.0); MEAN PLATELET VOLUME 8.5 fl (7.4-10.4); PLATELET 260 x1000/uL (130-400); RED BLOOD CELL COUNT 3.21 mill/uL (4.2-5.4); RED CELL DISTRIBUTION WIDTH 15.9 % (11.6-14.6)
[2020-11-03] MEDS: BLOOD SUGAR DIAGNOSTIC STRIP TEST SCH ×4 (06:29→21:08)
[2020-11-03] MEDS: HYDRALAZINE HCL 50MG TABLET PO SCH ×4 (06:29→21:08)
[2020-11-03] MEDS: NITROGLYCERIN OINT 1GM/INCH UDPKT TD SCH ×3 (06:31→20:54)
[2020-11-03] MEDS: INSULIN LISPRO 100 UNITS/ML SUBCUT SCH ×4 (07:00→21:00)
[2020-11-03] MEDS: ENOXAPARIN 30MG/0.3ML SYR SUBCUT SCH ×2 (08:28→20:55)
[2020-11-03] MEDS: ASPIRIN 81MG TABLET PO SCH (08:28)
[2020-11-03] MEDS: FAMOTIDINE 20MG/2ML VIAL IV SCH (08:28)
[2020-11-03] MEDS: AMLODIPINE 5MG TABLET PO SCH ×3 (08:28→21:00)
[2020-11-03] MEDS: DEXAMETHASONE 10 MG/ML VIAL IV SCH (08:28)
[2020-11-03] MEDS: NEBIVOLOL HCL 5 MG TABLET PO SCH ×2 (08:29→20:54)
[2020-11-03] MEDS ORDERED: LIDOCAINE HCL 1% 20ML VIAL (Pyxis) INJ ONE (08:44)
[2020-11-03] MEDS ORDERED: ASPIRIN 81MG TABLET PO SCH (09:00)
[2020-11-03] MEDS: CEFTRIAXONE 1,000 MG in DEXTROSE 5% WATER 50 ML IV SCH (09:44)
[2020-11-03 10:04] LABS: BG BASE EXCESS -8.2 mmol/L (-2.0-2.0); BG CARBOXYHEMOGLOBIN 0.3 % (0.5-1.5); BG DEOXYHEMOGLOBIN 0.5 % (0.0-5.0); BG HCO3 ACT 19.2 mmol/L (22.0-26.0); BG METHEMOGLOBIN 0.1 % (0.0-1.5); BG OXYGEN SATURATION 99.5 % (92.0-98.5); BG OXYHEMOGLOBIN 99.1 % (94.0-97.0); BG PCO2 48.3 mmHg (35.0-45.0); BG PH 7.217 (7.350-7.450); BG PO2 268.3 mmHg (75.0-100.0); BG SAMPLE SITE RIGHT BRACHIAL; BG TOTAL HEMOGLOBIN 9.3 g/dL (12.0-18.0); BG VENT MODE MASK - BIPAP
[2020-11-03] MEDS: FUROSEMIDE 100MG/10ML VIAL IVP SCH ×2 (10:04→16:07)
[2020-11-03] MEDS ORDERED: SODIUM POLYSTYRENE SULFONATE 15 G/60 ML BOT PR NR (11:00)
[2020-11-03] MEDS: LORAZEPAM 2MG/ML CPJ IV PRN ×3 (13:10→20:02)
[2020-11-03 14:28] LABS: PLATELET ESTIMATE NORMAL
[2020-11-03] MEDS: AZITHROMYCIN 500 MG in DEXT 5% WATER 250 ML IV SCH (17:53)
[2020-11-03] MEDS: ATORVASTATIN CALCIUM 40MG TABLET PO SCH ×3 (20:31→21:00)
[2020-11-03] MEDS: ALBUTEROL 6.7GM HFA INHALER ORI SCH (20:58)
[2020-11-03] MEDS: HYDRALAZINE 20MG/ML VIAL IV PRN (21:15)
[2020-11-03] MEDS: MORPHINE SULFATE 2 MG/ML CPJ (NOT FOR IM USE) IV PRN (22:45)
[2020-11-03 23:48] LABS: BG BASE EXCESS -6.3 mmol/L (-2.0-2.0); BG CARBOXYHEMOGLOBIN 0.3 % (0.5-1.5); BG DEOXYHEMOGLOBIN 1.1 % (0.0-5.0); BG FRACTION INSPIRED OXYGEN 100; BG HCO3 ACT 20.3 mmol/L (22.0-26.0); BG METHEMOGLOBIN 0.3 % (0.0-1.5); BG OXYGEN SATURATION 98.9 % (92.0-98.5); BG OXYHEMOGLOBIN 98.3 % (94.0-97.0); BG PCO2 45.5 mmHg (35.0-45.0); BG PH 7.268 (7.350-7.450); BG PO2 183.7 mmHg (75.0-100.0); BG SAMPLE SITE RIGHT BRACHIAL; BG TOTAL HEMOGLOBIN 9.6 g/dL (12.0-18.0); BG VENT MODE MASK - BIPAP
[2020-11-04] VITALS (50 sets, daily range): BP systolic 123–171; BP diastolic 62–105
[2020-11-04] MEDS: LORAZEPAM 2MG/ML CPJ IV PRN ×2 (01:09→09:24)
[2020-11-04] MEDS: ALBUTEROL 6.7GM HFA INHALER ORI SCH (03:15)
[2020-11-04] MEDS: MORPHINE SULFATE 2 MG/ML CPJ (NOT FOR IM USE) IV PRN (04:45)
[2020-11-04] MEDS: HYDRALAZINE 20MG/ML VIAL IV PRN (05:39)
[2020-11-04] MEDS: HYDRALAZINE HCL 50MG TABLET PO SCH ×3 (05:41→22:41)
[2020-11-04] MEDS: DEXTROSE 50% WATER 50ML SYRINGE IV PRN ×2 (06:00→14:20)
[2020-11-04] MEDS: NITROGLYCERIN OINT 1GM/INCH UDPKT TD SCH ×3 (06:03→22:41)
[2020-11-04 06:14] LABS: HEMATOCRIT. 26.1 % (36.0-48.0); HEMOGLOBIN. 8.4 g/dL (12.0-16.0); MEAN CORPUSCULAR HEMOGLOBIN 28.2 pg (28.0-32.0); MEAN CORPUSCULAR VOLUME 88.1 fL (81.0-99.0); MEAN PLATELET VOLUME 8.8 fl (7.4-10.4); PLATELET 318 x1000/uL (130-400); RED BLOOD CELL COUNT 2.96 mill/uL (4.2-5.4); RED CELL DISTRIBUTION WIDTH 16.1 % (11.6-14.6)
[2020-11-04] MEDS: BLOOD SUGAR DIAGNOSTIC STRIP TEST SCH ×4 (07:00→20:57)
[2020-11-04] MEDS: INSULIN LISPRO 100 UNITS/ML SUBCUT SCH ×4 (07:00→20:59)
[2020-11-04] MEDS: NEBIVOLOL HCL 5 MG TABLET PO SCH ×4 (09:00→20:58)
[2020-11-04] MEDS: AMLODIPINE 5MG TABLET PO SCH ×4 (09:00→20:57)
[2020-11-04] MEDS: ASPIRIN 81MG TABLET PO SCH ×3 (09:00→14:20)
[2020-11-04] MEDS: FUROSEMIDE 100MG/10ML VIAL IVP SCH ×2 (09:24→17:11)
[2020-11-04] MEDS: ENOXAPARIN 30MG/0.3ML SYR SUBCUT SCH ×2 (09:25→20:57)
[2020-11-04] MEDS: FAMOTIDINE 20MG/2ML VIAL IV SCH (09:25)
[2020-11-04] MEDS: DEXAMETHASONE 10 MG/ML VIAL IV SCH (09:25)
[2020-11-04] MEDS: CEFTRIAXONE 1,000 MG in DEXTROSE 5% WATER 50 ML IV SCH (09:26)
[2020-11-04 13:24] LABS: PLATELET ESTIMATE NORMAL
[2020-11-04 14:19] LABS: BG CARBOXYHEMOGLOBIN 0.3 % (0.5-1.5); BG DEOXYHEMOGLOBIN 0.8 % (0.0-5.0); BG FRACTION INSPIRED OXYGEN 100; BG HCO3 ACT 21.2 mmol/L (22.0-26.0); BG METHEMOGLOBIN 0.4 % (0.0-1.5); BG OXYGEN SATURATION 99.2 % (92.0-98.5); BG OXYHEMOGLOBIN 98.5 % (94.0-97.0); BG PH 7.301 (7.350-7.450); BG PO2 225.9 mmHg (75.0-100.0); BG SAMPLE SITE LEFT RADIAL; BG TOTAL HEMOGLOBIN 9.8 g/dL (12.0-18.0); BG VENT MODE VENT - AC
[2020-11-04] MEDS: DEXT 5%/0.9% NACL 1,000 ML IV SCH (15:29)
[2020-11-04] MEDS: FENTANYL CITRATE/PF 2,500 MCG in SODIUM CHLORIDE 0.9% 200 ML IV PRN (17:07)
[2020-11-04] MEDS: AZITHROMYCIN 500 MG in DEXT 5% WATER 250 ML IV SCH (17:11)
[2020-11-04] MEDS: ATORVASTATIN CALCIUM 40MG TABLET PO SCH (20:57)
[2020-11-04] MEDS: MIDAZOLAM HCL 100 MG in SODIUM CHLORIDE 0.9% 80 ML IV PRN (22:37)
[2020-11-05] VITALS (71 sets, daily range): BP systolic 100–133; BP diastolic 45–71
[2020-11-05] MEDS: DEXT 5%/0.9% NACL 1,000 ML IV SCH (04:45)
[2020-11-05 05:23] LABS: HEMATOCRIT. 26.2 % (36.0-48.0); HEMOGLOBIN. 8.3 g/dL (12.0-16.0); MEAN CORPUSCULAR HEMOGLOBIN 27.9 pg (28.0-32.0); MEAN CORPUSCULAR VOLUME 88.2 fL (81.0-99.0); MEAN PLATELET VOLUME 8.7 fl (7.4-10.4); PLATELET 288 x1000/uL (130-400); RED BLOOD CELL COUNT 2.97 mill/uL (4.2-5.4); RED CELL DISTRIBUTION WIDTH 16.3 % (11.6-14.6)
[2020-11-05] MEDS: HYDRALAZINE HCL 50MG TABLET PO SCH (06:00)
[2020-11-05] MEDS: NITROGLYCERIN OINT 1GM/INCH UDPKT TD SCH ×3 (06:38→21:53)
[2020-11-05] MEDS: INSULIN LISPRO 100 UNITS/ML SUBCUT SCH ×4 (06:39→23:25)
[2020-11-05] MEDS: BLOOD SUGAR DIAGNOSTIC STRIP TEST SCH ×4 (06:39→23:24)
[2020-11-05] MEDS: AMLODIPINE 5MG TABLET PO SCH ×2 (09:00→20:18)
[2020-11-05] MEDS: NEBIVOLOL HCL 5 MG TABLET PO SCH (09:00)
[2020-11-05] MEDS: CEFTRIAXONE 1,000 MG in DEXTROSE 5% WATER 50 ML IV SCH (09:07)
[2020-11-05] MEDS: ASPIRIN 81MG TABLET PO SCH (09:07)
[2020-11-05] MEDS: FAMOTIDINE 20MG/2ML VIAL IV SCH (09:07)
[2020-11-05] MEDS: FUROSEMIDE 40MG/4ML VIAL IV SCH ×2 (09:08→17:35)
[2020-11-05] MEDS: ENOXAPARIN 30MG/0.3ML SYR SUBCUT SCH ×2 (09:08→21:53)
[2020-11-05] MEDS: DEXAMETHASONE 10 MG/ML VIAL IV SCH (09:08)
[2020-11-05 09:31] LABS: BG BASE EXCESS -5.3 mmol/L (-2.0-2.0); BG CARBOXYHEMOGLOBIN 0.2 % (0.5-1.5); BG DEOXYHEMOGLOBIN 1.4 % (0.0-5.0); BG FRACTION INSPIRED OXYGEN 70; BG HCO3 ACT 21.1 mmol/L (22.0-26.0); BG METHEMOGLOBIN 0.2 % (0.0-1.5); BG OXYGEN SATURATION 98.6 % (92.0-98.5); BG OXYHEMOGLOBIN 98.2 % (94.0-97.0); BG PCO2 46.2 mmHg (35.0-45.0); BG PH 7.278 (7.350-7.450); BG PO2 139.8 mmHg (75.0-100.0); BG SAMPLE SITE RIGHT RADIAL; BG TOTAL HEMOGLOBIN 8.1 g/dL (12.0-18.0); BG VENT MODE VENT - AC
[2020-11-05] MEDS: FENTANYL CITRATE/PF 2,500 MCG in SODIUM CHLORIDE 0.9% 200 ML IV PRN (10:05)
[2020-11-05] MEDS ORDERED: SODIUM BICARBONATE 8.4% 1 MEQ/ML 50ML SYR IV NR (10:45)
[2020-11-05 11:14] LABS: PLATELET ESTIMATE NORMAL
[2020-11-05] MEDS: MIDAZOLAM HCL 100 MG in SODIUM CHLORIDE 0.9% 80 ML IV PRN (12:39)
[2020-11-05] MEDS: AZITHROMYCIN 500 MG in DEXT 5% WATER 250 ML IV SCH (17:35)
[2020-11-05] MEDS ORDERED: CEFTRIAXONE 1 G PREMIX 50 ML IV SCH (19:30)
[2020-11-05] MEDS: IPRATROPIUM/ALBUTEROL 0.5-3(2.5)MG/3ML NEB HHN SCH (21:04)
[2020-11-05] MEDS: ATORVASTATIN CALCIUM 40MG TABLET PO SCH (21:53)
[2020-11-05] MEDS: PIPERACILLIN/TAZOBACTAM 2.25 G in DEXTROSE 5% WATER 50 ML IV SCH (23:24)
[2020-11-06] VITALS (97 sets, daily range): BP systolic 97–158; BP diastolic 40–85
[2020-11-06] MEDS: FENTANYL CITRATE/PF 2,500 MCG in SODIUM CHLORIDE 0.9% 200 ML IV PRN ×2 (02:01→15:16)
[2020-11-06] MEDS: MIDAZOLAM HCL 100 MG in SODIUM CHLORIDE 0.9% 80 ML IV PRN ×3 (02:02→23:39)
[2020-11-06] MEDS: INSULIN LISPRO 100 UNITS/ML SUBCUT SCH ×4 (06:00→23:40)
[2020-11-06] MEDS: NITROGLYCERIN OINT 1GM/INCH UDPKT TD SCH ×3 (06:00→22:31)
[2020-11-06] MEDS: BLOOD SUGAR DIAGNOSTIC STRIP TEST SCH ×4 (06:01→23:39)
[2020-11-06 06:15] LABS: HEMATOCRIT. 21.9 % (36.0-48.0); MEAN CORPUSCULAR VOLUME 88.1 fL (81.0-99.0); MEAN PLATELET VOLUME 8.7 fl (7.4-10.4); PLATELET 254 x1000/uL (130-400); RED BLOOD CELL COUNT 2.49 mill/uL (4.2-5.4); RED CELL DISTRIBUTION WIDTH 16.2 % (11.6-14.6)
[2020-11-06] MEDS: FUROSEMIDE 40MG/4ML VIAL IV SCH ×2 (06:17→18:00)
[2020-11-06] MEDS: FOLIC ACID/VITAMIN B COMP W-C TABLET PO SCH (09:00)
[2020-11-06] MEDS: AMLODIPINE 5MG TABLET PO SCH ×2 (09:00→21:37)
[2020-11-06] MEDS: ENOXAPARIN 30MG/0.3ML SYR SUBCUT SCH (09:00)
[2020-11-06] MEDS ORDERED: CEFTRIAXONE 1,000 MG in DEXTROSE 5% WATER 50 ML IV SCH (09:00)
[2020-11-06] MEDS: ASPIRIN 81MG TABLET PO SCH (09:00)
[2020-11-06] MEDS: DEXAMETHASONE 10 MG/ML VIAL IV SCH (09:00)
[2020-11-06] MEDS: FAMOTIDINE 20MG/2ML VIAL IV SCH (09:00)
[2020-11-06 09:21] LABS: VITAMIN B12 SERUM 1648 pg/mL (211-911)
[2020-11-06] MEDS: IPRATROPIUM/ALBUTEROL 0.5-3(2.5)MG/3ML NEB HHN SCH ×3 (09:27→21:51)
[2020-11-06 09:59] LABS: BG BASE EXCESS -7.1 mmol/L (-2.0-2.0); BG DEOXYHEMOGLOBIN 4.9 % (0.0-5.0); BG HCO3 ACT 20.7 mmol/L (22.0-26.0); BG METHEMOGLOBIN 0.3 % (0.0-1.5); BG OXYGEN SATURATION 95.1 % (92.0-98.5); BG OXYHEMOGLOBIN 94.8 % (94.0-97.0); BG PCO2 54.9 mmHg (35.0-45.0); BG PH 7.194 (7.350-7.450); BG SAMPLE SITE RIGHT RADIAL; BG TOTAL HEMOGLOBIN 7.4 g/dL (12.0-18.0); BG VENT MODE VENT - AC
[2020-11-06] MEDS ORDERED: SODIUM BICARBONATE 8.4% 1 MEQ/ML 50ML SYR IV SCH ×2 (10:15→14:00)
[2020-11-06] MEDS: PIPERACILLIN/TAZOBACTAM 2.25 G in DEXTROSE 5% WATER 50 ML IV SCH ×2 (12:37→22:30)
[2020-11-06 13:03] LABS: PLATELET ESTIMATE NORMAL
[2020-11-06 13:18] LABS: BG CARBOXYHEMOGLOBIN 0.3 % (0.5-1.5); BG DEOXYHEMOGLOBIN 5.8 % (0.0-5.0); BG HCO3 ACT 27.9 mmol/L (22.0-26.0); BG METHEMOGLOBIN 0.3 % (0.0-1.5); BG OXYGEN SATURATION 94.2 % (92.0-98.5); BG OXYHEMOGLOBIN 93.6 % (94.0-97.0); BG PCO2 126.1 mmHg (35.0-45.0); BG PH 6.962 (7.350-7.450); BG PO2 100.8 mmHg (75.0-100.0); BG SAMPLE SITE RIGHT RADIAL; BG TOTAL HEMOGLOBIN 8.5 g/dL (12.0-18.0); BG VENT MODE VENT - AC
[2020-11-06] MEDS ORDERED: LIDOCAINE HCL 1% 20ML VIAL (Pyxis) INJ ONE (13:38)
[2020-11-06 15:17] LABS: BG CARBOXYHEMOGLOBIN 0.3 % (0.5-1.5); BG DEOXYHEMOGLOBIN 2.7 % (0.0-5.0); BG HCO3 ACT 26.6 mmol/L (22.0-26.0); BG METHEMOGLOBIN 0.2 % (0.0-1.5); BG OXYGEN SATURATION 97.3 % (92.0-98.5); BG OXYHEMOGLOBIN 96.8 % (94.0-97.0); BG PCO2 41.9 mmHg (35.0-45.0); BG PH 7.421 (7.350-7.450); BG PO2 96.1 mmHg (75.0-100.0); BG SAMPLE SITE RIGHT RADIAL; BG TOTAL HEMOGLOBIN 9.1 g/dL (12.0-18.0); BG VENT MODE VENT - AC
[2020-11-06 19:17] LABS: MEAN CORPUSCULAR HEMOGLOBIN 28.6 pg (28.0-32.0); MEAN CORPUSCULAR VOLUME 86.6 fL (81.0-99.0); PLATELET 247 x1000/uL (130-400); RED BLOOD CELL COUNT 2.28 mill/uL (4.2-5.4); RED CELL DISTRIBUTION WIDTH 16.3 % (11.6-14.6)
[2020-11-06 19:26] LABS: HEMATOCRIT 19.7 % (36.0-48.0); HEMOGLOBIN 6.5 g/dL (12.0-16.0)
[2020-11-06] MEDS: ATORVASTATIN CALCIUM 40MG TABLET PO SCH (21:36)
[2020-11-07] VITALS (96 sets, daily range): BP systolic 113–180; BP diastolic 51–90
[2020-11-07] MEDS: IPRATROPIUM/ALBUTEROL 0.5-3(2.5)MG/3ML NEB HHN SCH ×4 (01:04→21:41)
[2020-11-07] MEDS: FENTANYL CITRATE/PF 2,500 MCG in SODIUM CHLORIDE 0.9% 200 ML IV PRN ×3 (02:29→16:22)
[2020-11-07 06:15] LABS: HEMATOCRIT. 23.2 % (36.0-48.0); HEMOGLOBIN. 7.9 g/dL (12.0-16.0); MEAN CORPUSCULAR HEMOGLOBIN 29.1 pg (28.0-32.0); MEAN CORPUSCULAR VOLUME 85.4 fL (81.0-99.0); MEAN PLATELET VOLUME 8.8 fl (7.4-10.4); PLATELET 241 x1000/uL (130-400); RED BLOOD CELL COUNT 2.71 mill/uL (4.2-5.4); RED CELL DISTRIBUTION WIDTH 15.8 % (11.6-14.6)
[2020-11-07] MEDS: BLOOD SUGAR DIAGNOSTIC STRIP TEST SCH ×3 (06:56→17:44)
[2020-11-07] MEDS: PIPERACILLIN/TAZOBACTAM 2.25 G in DEXTROSE 5% WATER 50 ML IV SCH ×2 (07:03→13:31)
[2020-11-07] MEDS: INSULIN LISPRO 100 UNITS/ML SUBCUT SCH ×3 (07:03→17:44)
[2020-11-07] MEDS: FUROSEMIDE 40MG/4ML VIAL IV SCH ×2 (07:03→17:44)
[2020-11-07] MEDS: NITROGLYCERIN OINT 1GM/INCH UDPKT TD SCH ×2 (07:04→13:31)
[2020-11-07] MEDS: AMLODIPINE 5MG TABLET PO SCH ×2 (08:26→20:40)
[2020-11-07] MEDS: FAMOTIDINE 20MG/2ML VIAL IV SCH (09:15)
[2020-11-07] MEDS: FOLIC ACID/VITAMIN B COMP W-C TABLET PO SCH (09:15)
[2020-11-07] MEDS: DEXAMETHASONE 10 MG/ML VIAL IV SCH (09:15)
[2020-11-07] MEDS: MIDAZOLAM HCL 100 MG in SODIUM CHLORIDE 0.9% 80 ML IV PRN (09:53)
[2020-11-07 10:14] LABS: PLATELET ESTIMATE NORMAL
[2020-11-07 10:26] LABS: BG BASE EXCESS 1.7 mmol/L (-2.0-2.0); BG CARBOXYHEMOGLOBIN 0.1 % (0.5-1.5); BG DEOXYHEMOGLOBIN 0.6 % (0.0-5.0); BG FRACTION INSPIRED OXYGEN 70; BG HCO3 ACT 23.6 mmol/L (22.0-26.0); BG METHEMOGLOBIN 0.3 % (0.0-1.5); BG OXYGEN SATURATION 99.4 % (92.0-98.5); BG PCO2 26.8 mmHg (35.0-45.0); BG PH 7.563 (7.350-7.450); BG PO2 178.5 mmHg (75.0-100.0); BG SAMPLE SITE RIGHT RADIAL; BG VENT MODE VENT - AC
[2020-11-07] MEDS ORDERED: POTASSIUM CHLORIDE 20MEQ TABLET SR PO NR (11:00)
[2020-11-07] MEDS ORDERED: POTASSIUM CHLORIDE 20MEQ/PACKET PO NR (12:00)
[2020-11-07] MEDS: POLYETHYLENE GLYCOL 3350 (17GM) 1 DOSE PACK NG SCH (12:30)
[2020-11-07] MEDS: DOCUSATE SODIUM 100MG CAPSULE NG SCH (17:44)
[2020-11-08] VITALS (94 sets, daily range): BP systolic 115–188; BP diastolic 34–116
[2020-11-08] MEDS: BLOOD SUGAR DIAGNOSTIC STRIP TEST SCH ×5 (00:36→23:29)
[2020-11-08] MEDS: INSULIN LISPRO 100 UNITS/ML SUBCUT SCH ×5 (00:52→23:29)
[2020-11-08] MEDS: PIPERACILLIN/TAZOBACTAM 2.25 G in DEXTROSE 5% WATER 50 ML IV SCH ×4 (00:58→21:07)
[2020-11-08] MEDS: SENNOSIDES/DOCUSATE SOD 8.6/50MG TABLET NG SCH ×2 (00:58→21:08)
[2020-11-08] MEDS: EPOETIN ALFA-EPBX 10,000 UNIT/ML VIAL SUBCUT SCH (00:59)
[2020-11-08] MEDS: ATORVASTATIN CALCIUM 40MG TABLET PO SCH ×2 (00:59→21:08)
[2020-11-08] MEDS: NITROGLYCERIN OINT 1GM/INCH UDPKT TD SCH ×4 (00:59→21:08)
[2020-11-08] MEDS: DOCUSATE SODIUM SUGAR FREE 100MG/10ML UDC NG SCH ×2 (01:02→08:36)
[2020-11-08] MEDS: FENTANYL CITRATE/PF 2,500 MCG in SODIUM CHLORIDE 0.9% 200 ML IV PRN ×2 (04:18→15:27)
[2020-11-08] MEDS: MIDAZOLAM HCL 100 MG in SODIUM CHLORIDE 0.9% 80 ML IV PRN ×2 (04:18→16:58)
[2020-11-08 06:06] LABS: HEMATOCRIT. 26.4 % (36.0-48.0); HEMOGLOBIN. 8.8 g/dL (12.0-16.0); MEAN CORPUSCULAR HEMOGLOBIN 28.7 pg (28.0-32.0); MEAN CORPUSCULAR VOLUME 86.5 fL (81.0-99.0); MEAN PLATELET VOLUME 8.9 fl (7.4-10.4); PLATELET 259 x1000/uL (130-400); RED BLOOD CELL COUNT 3.06 mill/uL (4.2-5.4); RED CELL DISTRIBUTION WIDTH 15.7 % (11.6-14.6)
[2020-11-08] MEDS: FUROSEMIDE 40MG/4ML VIAL IV SCH ×2 (06:27→17:00)
[2020-11-08 07:25] LABS: FOLIC ACID (FOLATE) SERUM 15.8 ng/mL (>5.38)
[2020-11-08 07:42] LABS: NUCLEATED RED BLOOD CELLS 1 /100 WBC; PLATELET ESTIMATE NORMAL
[2020-11-08] MEDS: DEXAMETHASONE 10 MG/ML VIAL IV SCH (08:36)
[2020-11-08] MEDS: FAMOTIDINE 20MG/2ML VIAL IV SCH (08:36)
[2020-11-08] MEDS: FOLIC ACID/VITAMIN B COMP W-C TABLET PO SCH (08:36)
[2020-11-08] MEDS: AMLODIPINE 5MG TABLET PO SCH ×2 (08:36→21:07)
[2020-11-08] MEDS: POLYETHYLENE GLYCOL 3350 (17GM) 1 DOSE PACK NG SCH (08:37)
[2020-11-08] MEDS: IPRATROPIUM/ALBUTEROL 0.5-3(2.5)MG/3ML NEB HHN SCH ×3 (09:00→20:40)
[2020-11-08] MEDS: DOCUSATE SODIUM 100MG CAPSULE NG SCH ×2 (09:01→16:28)
[2020-11-08 10:48] LABS: BG BASE EXCESS 1.2 mmol/L (-2.0-2.0); BG CARBOXYHEMOGLOBIN 0.3 % (0.5-1.5); BG DEOXYHEMOGLOBIN 0.9 % (0.0-5.0); BG FRACTION INSPIRED OXYGEN 70; BG HCO3 ACT 21.3 mmol/L (22.0-26.0); BG METHEMOGLOBIN 0.2 % (0.0-1.5); BG OXYGEN SATURATION 99.1 % (92.0-98.5); BG OXYHEMOGLOBIN 98.6 % (94.0-97.0); BG PCO2 20.9 mmHg (35.0-45.0); BG PH 7.626 (7.350-7.450); BG SAMPLE SITE RIGHT RADIAL; BG TOTAL HEMOGLOBIN 9.9 g/dL (12.0-18.0); BG VENT MODE VENT - AC
[2020-11-08] MEDS: CLONIDINE 0.1MG TABLET PO PRN (12:00)
[2020-11-08 13:21] LABS: BG BASE EXCESS -0.2 mmol/L (-2.0-2.0); BG CARBOXYHEMOGLOBIN 0.1 % (0.5-1.5); BG DEOXYHEMOGLOBIN 2.6 % (0.0-5.0); BG FRACTION INSPIRED OXYGEN 70; BG HCO3 ACT 30.4 mmol/L (22.0-26.0); BG METHEMOGLOBIN 0.4 % (0.0-1.5); BG OXYGEN SATURATION 97.4 % (92.0-98.5); BG OXYHEMOGLOBIN 96.9 % (94.0-97.0); BG PCO2 89.2 mmHg (35.0-45.0); BG PH 7.151 (7.350-7.450); BG PO2 138.8 mmHg (75.0-100.0); BG SAMPLE SITE LEFT RADIAL; BG VENT MODE VENT - AC
[2020-11-08] MEDS ORDERED: HYDRALAZINE HCL 50MG TABLET PO SCH (14:00)
[2020-11-08] MEDS: HYDRALAZINE HCL 50MG TABLET PO SCH ×2 (16:38→21:08)
[2020-11-08 17:54] LABS: BG BASE EXCESS 0.6 mmol/L (-2.0-2.0); BG CARBOXYHEMOGLOBIN 0.3 % (0.5-1.5); BG DEOXYHEMOGLOBIN 0.9 % (0.0-5.0); BG FRACTION INSPIRED OXYGEN 70; BG HCO3 ACT 24.8 mmol/L (22.0-26.0); BG METHEMOGLOBIN 0.3 % (0.0-1.5); BG OXYGEN SATURATION 99.1 % (92.0-98.5); BG OXYHEMOGLOBIN 98.5 % (94.0-97.0); BG PCO2 37.9 mmHg (35.0-45.0); BG PH 7.433 (7.350-7.450); BG PO2 249.6 mmHg (75.0-100.0); BG SAMPLE SITE RIGHT RADIAL; BG VENT MODE VENT - AC
[2020-11-08] MEDS ORDERED: INSULIN GLARGINE UD 100 UNITS/ML SYR SUBCUT NR (18:00)
[2020-11-09] VITALS (101 sets, daily range): BP systolic 71–181; BP diastolic 42–91
[2020-11-09] MEDS: FENTANYL CITRATE/PF 2,500 MCG in SODIUM CHLORIDE 0.9% 200 ML IV PRN ×3 (00:33→19:41)
[2020-11-09] MEDS: MIDAZOLAM HCL 100 MG in DEXT 5% WATER 80 ML IV PRN ×3 (00:34→19:42)
[2020-11-09] MEDS: IPRATROPIUM/ALBUTEROL 0.5-3(2.5)MG/3ML NEB HHN SCH ×4 (03:01→20:20)
[2020-11-09] MEDS: PIPERACILLIN/TAZOBACTAM 2.25 G in DEXTROSE 5% WATER 50 ML IV SCH ×3 (05:37→21:02)
[2020-11-09 05:57] LABS: HEMATOCRIT. 25.2 % (36.0-48.0); HEMOGLOBIN. 8.4 g/dL (12.0-16.0); MEAN CORPUSCULAR HEMOGLOBIN 29.3 pg (28.0-32.0); MEAN CORPUSCULAR VOLUME 87.5 fL (81.0-99.0); MEAN PLATELET VOLUME 8.8 fl (7.4-10.4); PLATELET 238 x1000/uL (130-400); RED BLOOD CELL COUNT 2.88 mill/uL (4.2-5.4); RED CELL DISTRIBUTION WIDTH 15.8 % (11.6-14.6)
[2020-11-09] MEDS: NITROGLYCERIN OINT 1GM/INCH UDPKT TD SCH ×3 (06:55→21:02)
[2020-11-09] MEDS: HYDRALAZINE HCL 50MG TABLET PO SCH ×3 (06:55→21:02)
[2020-11-09] MEDS: FUROSEMIDE 40MG/4ML VIAL IV SCH ×2 (06:55→17:51)
[2020-11-09] MEDS: INSULIN LISPRO 100 UNITS/ML SUBCUT SCH ×3 (06:55→17:52)
[2020-11-09] MEDS: BLOOD SUGAR DIAGNOSTIC STRIP TEST SCH ×3 (06:56→17:37)
[2020-11-09 08:43] LABS: NUCLEATED RED BLOOD CELLS 1 /100 WBC
[2020-11-09 08:44] LABS: PLATELET ESTIMATE NORMAL
[2020-11-09] MEDS: POLYETHYLENE GLYCOL 3350 (17GM) 1 DOSE PACK NG SCH (09:49)
[2020-11-09] MEDS: AMLODIPINE 5MG TABLET PO SCH ×2 (09:49→21:01)
[2020-11-09] MEDS: FOLIC ACID/VITAMIN B COMP W-C TABLET PO SCH (09:49)
[2020-11-09] MEDS: DEXAMETHASONE 10 MG/ML VIAL IV SCH (09:49)
[2020-11-09] MEDS: DOCUSATE SODIUM 100MG CAPSULE NG SCH (09:49)
[2020-11-09] MEDS: FAMOTIDINE 20MG/2ML VIAL IV SCH (09:50)
[2020-11-09] MEDS ORDERED: INSULIN GLARGINE UD 100 UNITS/ML SYR SUBCUT SCH (10:00)
[2020-11-09 11:58] LABS: BG BASE EXCESS -1.7 mmol/L (-2.0-2.0); BG CARBOXYHEMOGLOBIN 0.3 % (0.5-1.5); BG DEOXYHEMOGLOBIN 1.5 % (0.0-5.0); BG HCO3 ACT 23.8 mmol/L (22.0-26.0); BG METHEMOGLOBIN 0.4 % (0.0-1.5); BG OXYGEN SATURATION 98.5 % (92.0-98.5); BG OXYHEMOGLOBIN 97.8 % (94.0-97.0); BG PCO2 43.6 mmHg (35.0-45.0); BG PH 7.355 (7.350-7.450); BG PO2 141.6 mmHg (75.0-100.0); BG SAMPLE SITE RIGHT BRACHIAL; BG TOTAL HEMOGLOBIN 10.5 g/dL (12.0-18.0); BG VENT MODE VENT - AC
[2020-11-09] MEDS ORDERED: DOCUSATE SODIUM 100MG CAPSULE PO SCH (17:00)
[2020-11-09] MEDS: FERROUS SULFATE 325MG TABLET PO SCH (17:51)
[2020-11-09] MEDS: DOCUSATE SODIUM SUGAR FREE 100MG/10ML UDC NG SCH (17:51)
[2020-11-09] MEDS: SENNOSIDES/DOCUSATE SOD 8.6/50MG TABLET NG SCH (21:00)
[2020-11-09] MEDS: ATORVASTATIN CALCIUM 40MG TABLET PO SCH (21:00)
[2020-11-09] MEDS: EPOETIN ALFA-EPBX 10,000 UNIT/ML VIAL SUBCUT SCH (21:01)
[2020-11-09] MEDS: INSULIN GLARGINE UD 100 UNITS/ML SYR SUBCUT SCH (21:12)
[2020-11-10] VITALS (99 sets, daily range): BP systolic 116–190; BP diastolic 44–141
[2020-11-10] MEDS: BLOOD SUGAR DIAGNOSTIC STRIP TEST SCH ×5 (00:15→23:40)
[2020-11-10] MEDS: INSULIN LISPRO 100 UNITS/ML SUBCUT SCH ×5 (00:16→23:39)
[2020-11-10] MEDS: IPRATROPIUM/ALBUTEROL 0.5-3(2.5)MG/3ML NEB HHN SCH ×4 (02:27→20:40)
[2020-11-10] MEDS: HYDRALAZINE 20MG/ML VIAL IV PRN ×3 (02:37→13:14)
[2020-11-10] MEDS: FENTANYL CITRATE/PF 2,500 MCG in SODIUM CHLORIDE 0.9% 200 ML IV PRN ×3 (03:30→20:05)
[2020-11-10] MEDS: NITROGLYCERIN OINT 1GM/INCH UDPKT TD SCH ×3 (05:18→22:46)
[2020-11-10] MEDS: HYDRALAZINE HCL 50MG TABLET PO SCH ×3 (05:18→22:44)
[2020-11-10] MEDS: FUROSEMIDE 40MG/4ML VIAL IV SCH ×2 (05:19→18:27)
[2020-11-10] MEDS: PIPERACILLIN/TAZOBACTAM 2.25 G in DEXTROSE 5% WATER 50 ML IV SCH ×3 (05:19→22:45)
[2020-11-10] MEDS: MIDAZOLAM HCL 100 MG in DEXT 5% WATER 80 ML IV PRN ×3 (05:45→20:26)
[2020-11-10 06:04] LABS: HEMOGLOBIN. 9.3 g/dL (12.0-16.0); MEAN CORPUSCULAR HEMOGLOBIN 28.3 pg (28.0-32.0); MEAN CORPUSCULAR VOLUME 88.6 fL (81.0-99.0); MEAN PLATELET VOLUME 8.7 fl (7.4-10.4); PLATELET 260 x1000/uL (130-400); RED BLOOD CELL COUNT 3.28 mill/uL (4.2-5.4); RED CELL DISTRIBUTION WIDTH 15.7 % (11.6-14.6)
[2020-11-10] MEDS: POLYETHYLENE GLYCOL 3350 (17GM) 1 DOSE PACK NG SCH (09:01)
[2020-11-10] MEDS: DEXAMETHASONE 10 MG/ML VIAL IV SCH (09:01)
[2020-11-10] MEDS: DOCUSATE SODIUM SUGAR FREE 100MG/10ML UDC NG SCH ×2 (09:01→18:27)
[2020-11-10] MEDS: FAMOTIDINE 20MG/2ML VIAL IV SCH (09:01)
[2020-11-10] MEDS: AMLODIPINE 5MG TABLET PO SCH ×2 (09:02→22:45)
[2020-11-10] MEDS: FERROUS SULFATE 325MG TABLET PO SCH ×2 (09:02→18:27)
[2020-11-10] MEDS: FOLIC ACID/VITAMIN B COMP W-C TABLET PO SCH (09:02)
[2020-11-10] MEDS: INSULIN GLARGINE UD 100 UNITS/ML SYR SUBCUT SCH ×3 (10:33→22:46)
[2020-11-10] MEDS: CLONIDINE 0.1MG TABLET PO PRN ×2 (10:37→13:14)
[2020-11-10 13:07] LABS: BG BASE EXCESS -1.7 mmol/L (-2.0-2.0); BG CARBOXYHEMOGLOBIN 0.2 % (0.5-1.5); BG DEOXYHEMOGLOBIN 1.9 % (0.0-5.0); BG FRACTION INSPIRED OXYGEN 40; BG HCO3 ACT 21.5 mmol/L (22.0-26.0); BG METHEMOGLOBIN 0.3 % (0.0-1.5); BG OXYGEN SATURATION 98.1 % (92.0-98.5); BG OXYHEMOGLOBIN 97.6 % (94.0-97.0); BG PCO2 30.9 mmHg (35.0-45.0); BG PO2 112.6 mmHg (75.0-100.0); BG SAMPLE SITE LEFT RADIAL; BG TOTAL RESPIRATORY RATE 20 b/min; BG VENT MODE VENT - AC
[2020-11-10 14:13] LABS: PLATELET ESTIMATE NORMAL
[2020-11-10] MEDS: SENNOSIDES/DOCUSATE SOD 8.6/50MG TABLET NG SCH (22:43)
[2020-11-10] MEDS: METOPROLOL TARTRATE 25MG TABLET PO SCH (22:44)
[2020-11-10] MEDS: ATORVASTATIN CALCIUM 40MG TABLET PO SCH (22:45)
[2020-11-11] VITALS (96 sets, daily range): BP systolic 110–180; BP diastolic 48–117
[2020-11-11] MEDS: IPRATROPIUM/ALBUTEROL 0.5-3(2.5)MG/3ML NEB HHN SCH ×4 (02:53→16:14)
[2020-11-11 05:05] LABS: HEMATOCRIT 26.9 % (36.0-48.0); HEMOGLOBIN 8.9 g/dL (12.0-16.0); MEAN CORPUSCULAR HEMOGLOBIN 28.9 pg (28.0-32.0); MEAN CORPUSCULAR VOLUME 87.6 fL (81.0-99.0); PLATELET 217 x1000/uL (130-400); RED BLOOD CELL COUNT 3.07 mill/uL (4.2-5.4); RED CELL DISTRIBUTION WIDTH 15.4 % (11.6-14.6)
[2020-11-11] MEDS: FENTANYL CITRATE/PF 2,500 MCG in SODIUM CHLORIDE 0.9% 200 ML IV PRN ×2 (05:20→18:01)
[2020-11-11] MEDS: FUROSEMIDE 40MG/4ML VIAL IV SCH ×2 (06:24→17:59)
[2020-11-11] MEDS: HYDRALAZINE HCL 50MG TABLET PO SCH ×3 (06:24→21:20)
[2020-11-11] MEDS: INSULIN LISPRO 100 UNITS/ML SUBCUT SCH ×3 (06:26→20:32)
[2020-11-11] MEDS: NITROGLYCERIN OINT 1GM/INCH UDPKT TD SCH ×3 (06:26→20:00)
[2020-11-11] MEDS: BLOOD SUGAR DIAGNOSTIC STRIP TEST SCH ×3 (06:26→18:01)
[2020-11-11] MEDS: FAMOTIDINE 20MG/2ML VIAL IV SCH (09:00)
[2020-11-11] MEDS: DOCUSATE SODIUM SUGAR FREE 100MG/10ML UDC NG SCH ×2 (09:00→17:57)
[2020-11-11] MEDS: METOPROLOL TARTRATE 25MG TABLET PO SCH (10:01)
[2020-11-11] MEDS: DEXAMETHASONE 10 MG/ML VIAL IV SCH (10:01)
[2020-11-11] MEDS: FOLIC ACID/VITAMIN B COMP W-C TABLET PO SCH (10:02)
[2020-11-11] MEDS: AMLODIPINE 5MG TABLET PO SCH ×2 (10:02→21:21)
[2020-11-11] MEDS: FERROUS SULFATE 325MG TABLET PO SCH ×2 (10:02→17:57)
[2020-11-11] MEDS: HYDRALAZINE 20MG/ML VIAL IV PRN ×2 (10:05→12:00)
[2020-11-11] MEDS: CLONIDINE 0.1MG TABLET PO PRN ×2 (10:05→12:00)
[2020-11-11] MEDS ORDERED: METOPROLOL TARTRATE 50MG TABLET PO NR (10:15)
[2020-11-11 10:38] LABS: BG CARBOXYHEMOGLOBIN 0.3 % (0.5-1.5); BG DEOXYHEMOGLOBIN 1.1 % (0.0-5.0); BG FRACTION INSPIRED OXYGEN 35; BG HCO3 ACT 23.1 mmol/L (22.0-26.0); BG METHEMOGLOBIN 0.1 % (0.0-1.5); BG OXYGEN SATURATION 98.9 % (92.0-98.5); BG OXYHEMOGLOBIN 98.5 % (94.0-97.0); BG PCO2 28.5 mmHg (35.0-45.0); BG PH 7.527 (7.350-7.450); BG PO2 163.1 mmHg (75.0-100.0); BG SAMPLE SITE RIGHT RADIAL; BG TOTAL HEMOGLOBIN 10.6 g/dL (12.0-18.0); BG VENT MODE VENT - AC
[2020-11-11] MEDS: MIDAZOLAM HCL 100 MG in DEXT 5% WATER 80 ML IV PRN ×2 (12:02→18:00)
[2020-11-11 16:47] LABS: BG BASE EXCESS 1.4 mmol/L (-2.0-2.0); BG CARBOXYHEMOGLOBIN 0.3 % (0.5-1.5); BG DEOXYHEMOGLOBIN 1.6 % (0.0-5.0); BG HCO3 ACT 22.6 mmol/L (22.0-26.0); BG METHEMOGLOBIN 0.2 % (0.0-1.5); BG OXYGEN SATURATION 98.4 % (92.0-98.5); BG OXYHEMOGLOBIN 97.9 % (94.0-97.0); BG PCO2 24.5 mmHg (35.0-45.0); BG PH 7.582 (7.350-7.450); BG PO2 120.8 mmHg (75.0-100.0); BG SAMPLE SITE LEFT RADIAL; BG TOTAL HEMOGLOBIN 9.5 g/dL (12.0-18.0); BG VENT MODE 35
[2020-11-11] MEDS: PIPERACILLIN/TAZOBACTAM 2.25 G in DEXTROSE 5% WATER 50 ML IV SCH (17:57)
[2020-11-11] MEDS: SENNOSIDES/DOCUSATE SOD 8.6/50MG TABLET NG SCH (21:00)
[2020-11-11] MEDS: ATORVASTATIN CALCIUM 40MG TABLET PO SCH (21:20)
[2020-11-11] MEDS: METOPROLOL TARTRATE 50MG TABLET PO SCH (21:21)
[2020-11-11] MEDS: INSULIN GLARGINE UD 100 UNITS/ML SYR SUBCUT SCH (22:43)
[2020-11-11] MEDS: DILTIAZEM HCL 5MG/ML 5ML VIAL IV PRN (22:44)
[2020-11-12] VITALS (89 sets, daily range): BP systolic 136–201; BP diastolic 51–89
[2020-11-12] MEDS: PIPERACILLIN/TAZOBACTAM 2.25 G in DEXTROSE 5% WATER 50 ML IV SCH ×4 (00:29→23:36)
[2020-11-12] MEDS: INSULIN LISPRO 100 UNITS/ML SUBCUT SCH ×4 (00:30→18:22)
[2020-11-12] MEDS: HYDRALAZINE 20MG/ML VIAL IV PRN (00:30)
[2020-11-12] MEDS: BLOOD SUGAR DIAGNOSTIC STRIP TEST SCH ×4 (00:31→17:40)
[2020-11-12] MEDS: NITROGLYCERIN OINT 1GM/INCH UDPKT TD SCH ×4 (03:51→22:08)
[2020-11-12] MEDS: MIDAZOLAM HCL 100 MG in DEXT 5% WATER 80 ML IV PRN (03:52)
[2020-11-12] MEDS: HYDRALAZINE HCL 50MG TABLET PO SCH ×3 (04:59→23:35)
[2020-11-12] MEDS: FUROSEMIDE 40MG/4ML VIAL IV SCH ×2 (04:59→17:47)
[2020-11-12 06:23] LABS: HEMATOCRIT 29.2 % (36.0-48.0); HEMOGLOBIN 9.4 g/dL (12.0-16.0); MEAN CORPUSCULAR HEMOGLOBIN 28.1 pg (28.0-32.0); MEAN CORPUSCULAR VOLUME 87.6 fL (81.0-99.0); PLATELET 277 x1000/uL (130-400); RED BLOOD CELL COUNT 3.33 mill/uL (4.2-5.4); RED CELL DISTRIBUTION WIDTH 15.7 % (11.6-14.6)
[2020-11-12] MEDS: IPRATROPIUM/ALBUTEROL 0.5-3(2.5)MG/3ML NEB HHN SCH ×3 (08:55→20:55)
[2020-11-12] MEDS: FAMOTIDINE 20MG/2ML VIAL IV SCH (09:16)
[2020-11-12] MEDS: DEXAMETHASONE 4MG/ML 1ML VIAL IV SCH (09:16)
[2020-11-12] MEDS: FOLIC ACID/VITAMIN B COMP W-C TABLET PO SCH (09:16)
[2020-11-12] MEDS: METOPROLOL TARTRATE 50MG TABLET PO SCH ×3 (09:17→23:34)
[2020-11-12] MEDS: AMLODIPINE 5MG TABLET PO SCH ×2 (09:18→20:53)
[2020-11-12] MEDS: FERROUS SULFATE 325MG TABLET PO SCH ×2 (09:18→17:46)
[2020-11-12] MEDS: DOCUSATE SODIUM SUGAR FREE 100MG/10ML UDC NG SCH ×2 (09:26→17:00)
[2020-11-12] MEDS: INSULIN GLARGINE UD 100 UNITS/ML SYR SUBCUT SCH ×2 (11:46→21:49)
[2020-11-12 13:23] LABS: BG BASE EXCESS -1.4 mmol/L (-2.0-2.0); BG CARBOXYHEMOGLOBIN 0.3 % (0.5-1.5); BG DEOXYHEMOGLOBIN 2.4 % (0.0-5.0); BG FRACTION INSPIRED OXYGEN 35; BG HCO3 ACT 21.6 mmol/L (22.0-26.0); BG METHEMOGLOBIN 0.1 % (0.0-1.5); BG OXYGEN SATURATION 97.6 % (92.0-98.5); BG OXYHEMOGLOBIN 97.2 % (94.0-97.0); BG PCO2 30.5 mmHg (35.0-45.0); BG PH 7.468 (7.350-7.450); BG PO2 103.9 mmHg (75.0-100.0); BG SAMPLE SITE LEFT RADIAL; BG TOTAL HEMOGLOBIN 10.6 g/dL (12.0-18.0); BG TOTAL RESPIRATORY RATE 20 b/min; BG VENT MODE VENT - AC
[2020-11-12] MEDS: ATORVASTATIN CALCIUM 40MG TABLET PO SCH (20:53)
[2020-11-12] MEDS: SENNOSIDES/DOCUSATE SOD 8.6/50MG TABLET NG SCH (20:53)
[2020-11-12] MEDS: EPOETIN ALFA-EPBX 10,000 UNIT/ML VIAL SUBCUT SCH (21:00)
[2020-11-13] VITALS (90 sets, daily range): BP systolic 83–215; BP diastolic 47–97
[2020-11-13] MEDS ORDERED: INSULIN LISPRO 100 UNITS/ML SUBCUT SCH (00:10)
[2020-11-13] MEDS: BLOOD SUGAR DIAGNOSTIC STRIP TEST SCH ×5 (00:12→23:16)
[2020-11-13] MEDS: IPRATROPIUM/ALBUTEROL 0.5-3(2.5)MG/3ML NEB HHN SCH ×4 (02:57→21:20)
[2020-11-13] MEDS: NITROGLYCERIN OINT 1GM/INCH UDPKT TD SCH ×4 (03:41→20:44)
[2020-11-13 06:17] LABS: HEMATOCRIT 30.6 % (36.0-48.0); HEMOGLOBIN 9.7 g/dL (12.0-16.0); MEAN CORPUSCULAR HEMOGLOBIN 28.2 pg (28.0-32.0); PLATELET 311 x1000/uL (130-400); RED BLOOD CELL COUNT 3.44 mill/uL (4.2-5.4); RED CELL DISTRIBUTION WIDTH 16.1 % (11.6-14.6)
[2020-11-13] MEDS: INSULIN LISPRO 100 UNITS/ML SUBCUT SCH ×4 (06:22→18:28)
[2020-11-13] MEDS: FUROSEMIDE 40MG/4ML VIAL IV SCH ×2 (06:49→18:00)
[2020-11-13] MEDS: PIPERACILLIN/TAZOBACTAM 2.25 G in DEXTROSE 5% WATER 50 ML IV SCH ×2 (08:04→20:44)
[2020-11-13] MEDS: FERROUS SULFATE 325MG TABLET PO SCH ×2 (08:21→17:00)
[2020-11-13] MEDS: FOLIC ACID/VITAMIN B COMP W-C TABLET PO SCH (08:21)
[2020-11-13] MEDS: FAMOTIDINE 20MG/2ML VIAL IV SCH (08:21)
[2020-11-13] MEDS: DEXAMETHASONE 4MG/ML 1ML VIAL IV SCH (08:22)
[2020-11-13] MEDS: METOPROLOL TARTRATE 50MG TABLET PO SCH ×3 (08:23→22:03)
[2020-11-13] MEDS: DOCUSATE SODIUM SUGAR FREE 100MG/10ML UDC NG SCH ×2 (10:58→17:00)
[2020-11-13] MEDS: AMLODIPINE 5MG TABLET PO SCH ×2 (10:59→20:45)
[2020-11-13] MEDS: HYDRALAZINE HCL 50MG TABLET PO SCH ×3 (10:59→22:03)
[2020-11-13] MEDS: INSULIN GLARGINE UD 100 UNITS/ML SYR SUBCUT SCH ×2 (13:55→22:19)
[2020-11-13] MEDS: CLONIDINE 0.1MG TABLET PO SCH ×2 (14:00→22:04)
[2020-11-13] MEDS: ATORVASTATIN CALCIUM 40MG TABLET PO SCH (20:45)
[2020-11-13] MEDS: SENNOSIDES/DOCUSATE SOD 8.6/50MG TABLET NG SCH (20:45)
[2020-11-14] VITALS (91 sets, daily range): BP systolic 99–191; BP diastolic 45–96
[2020-11-14 00:08] LABS: BG BASE EXCESS -0.5 mmol/L (-2.0-2.0); BG CARBOXYHEMOGLOBIN 0.3 % (0.5-1.5); BG DEOXYHEMOGLOBIN 2.3 % (0.0-5.0); BG FRACTION INSPIRED OXYGEN 35; BG HCO3 ACT 21.3 mmol/L (22.0-26.0); BG METHEMOGLOBIN 0.3 % (0.0-1.5); BG OXYGEN SATURATION 97.7 % (92.0-98.5); BG OXYHEMOGLOBIN 97.1 % (94.0-97.0); BG PCO2 27.3 mmHg (35.0-45.0); BG PO2 99.7 mmHg (75.0-100.0); BG SAMPLE SITE RIGHT RADIAL; BG TOTAL HEMOGLOBIN 12.9 g/dL (12.0-18.0); BG VENT MODE VENT - AC
[2020-11-14] MEDS: INSULIN LISPRO 100 UNITS/ML SUBCUT SCH ×5 (00:10→23:37)
[2020-11-14] MEDS: EPOETIN ALFA-EPBX 10,000 UNIT/ML VIAL SUBCUT SCH (01:02)
[2020-11-14] MEDS: NITROGLYCERIN OINT 1GM/INCH UDPKT TD SCH ×4 (01:33→21:58)
[2020-11-14] MEDS: IPRATROPIUM/ALBUTEROL 0.5-3(2.5)MG/3ML NEB HHN SCH ×4 (03:26→21:43)
[2020-11-14] MEDS: FUROSEMIDE 40MG/4ML VIAL IV SCH ×2 (05:33→18:12)
[2020-11-14] MEDS: HYDRALAZINE HCL 50MG TABLET PO SCH ×3 (06:10→21:55)
[2020-11-14] MEDS: METOPROLOL TARTRATE 50MG TABLET PO SCH ×2 (06:11→21:58)
[2020-11-14] MEDS: BLOOD SUGAR DIAGNOSTIC STRIP TEST SCH ×4 (06:11→23:37)
[2020-11-14] MEDS: CLONIDINE 0.1MG TABLET PO SCH ×3 (06:11→21:54)
[2020-11-14 06:14] LABS: HEMATOCRIT 29.6 % (36.0-48.0); HEMOGLOBIN 9.6 g/dL (12.0-16.0); MEAN CORPUSCULAR HEMOGLOBIN 28.4 pg (28.0-32.0); MEAN CORPUSCULAR VOLUME 87.3 fL (81.0-99.0); PLATELET 260 x1000/uL (130-400); RED BLOOD CELL COUNT 3.39 mill/uL (4.2-5.4); RED CELL DISTRIBUTION WIDTH 15.6 % (11.6-14.6)
[2020-11-14] MEDS: FAMOTIDINE 20MG/2ML VIAL IV SCH (08:27)
[2020-11-14] MEDS: DEXAMETHASONE 4MG/ML 1ML VIAL IV SCH (08:28)
[2020-11-14] MEDS: DOCUSATE SODIUM SUGAR FREE 100MG/10ML UDC NG SCH ×2 (08:29→18:12)
[2020-11-14] MEDS: FOLIC ACID/VITAMIN B COMP W-C TABLET PO SCH (08:29)
[2020-11-14] MEDS: AMLODIPINE 5MG TABLET PO SCH ×2 (08:29→21:55)
[2020-11-14] MEDS: FERROUS SULFATE 325MG TABLET PO SCH ×2 (08:30→18:12)
[2020-11-14] MEDS: HYDRALAZINE 20MG/ML VIAL IV PRN (09:53)
[2020-11-14 10:21] LABS: BG BASE EXCESS -0.6 mmol/L (-2.0-2.0); BG CARBOXYHEMOGLOBIN 0.3 % (0.5-1.5); BG DEOXYHEMOGLOBIN 1.8 % (0.0-5.0); BG FRACTION INSPIRED OXYGEN 35; BG HCO3 ACT 22.4 mmol/L (22.0-26.0); BG METHEMOGLOBIN 0.1 % (0.0-1.5); BG OXYGEN SATURATION 98.2 % (92.0-98.5); BG OXYHEMOGLOBIN 97.8 % (94.0-97.0); BG PH 7.476 (7.350-7.450); BG PO2 130.8 mmHg (75.0-100.0); BG SAMPLE SITE LEFT RADIAL; BG TOTAL HEMOGLOBIN 10.5 g/dL (12.0-18.0); BG VENT MODE VENT - AC
[2020-11-14] MEDS: INSULIN GLARGINE UD 100 UNITS/ML SYR SUBCUT SCH ×2 (12:06→21:53)
[2020-11-14] MEDS ORDERED: EPOETIN ALFA 10000UNITS/ML VIAL SUBCUT SCH ×2 (21:00)
[2020-11-14] MEDS: ATORVASTATIN CALCIUM 40MG TABLET PO SCH (21:55)
[2020-11-14] MEDS: SENNOSIDES/DOCUSATE SOD 8.6/50MG TABLET NG SCH (21:56)
[2020-11-15] VITALS (97 sets, daily range): BP systolic 119–185; BP diastolic 55–99
[2020-11-15] MEDS: NITROGLYCERIN OINT 1GM/INCH UDPKT TD SCH ×5 (02:09→20:39)
[2020-11-15] MEDS: IPRATROPIUM/ALBUTEROL 0.5-3(2.5)MG/3ML NEB HHN SCH ×4 (03:18→21:18)
[2020-11-15 06:19] LABS: HEMATOCRIT. 29.7 % (36.0-48.0); HEMOGLOBIN. 9.5 g/dL (12.0-16.0); MEAN CORPUSCULAR HEMOGLOBIN 28.3 pg (28.0-32.0); MEAN CORPUSCULAR VOLUME 88.4 fL (81.0-99.0); MEAN PLATELET VOLUME 10.1 fl (7.4-10.4); PLATELET 257 x1000/uL (130-400); RED BLOOD CELL COUNT 3.36 mill/uL (4.2-5.4); RED CELL DISTRIBUTION WIDTH 16.1 % (11.6-14.6)
[2020-11-15] MEDS: INSULIN LISPRO 100 UNITS/ML SUBCUT SCH ×3 (06:19→18:08)
[2020-11-15] MEDS: FUROSEMIDE 40MG/4ML VIAL IV SCH ×2 (06:20→18:07)
[2020-11-15] MEDS: CLONIDINE 0.1MG TABLET PO SCH ×3 (06:20→22:00)
[2020-11-15] MEDS: BLOOD SUGAR DIAGNOSTIC STRIP TEST SCH ×3 (06:21→17:56)
[2020-11-15] MEDS: HYDRALAZINE HCL 50MG TABLET PO SCH ×3 (06:21→22:00)
[2020-11-15 08:34] LABS: PLATELET ESTIMATE NORMAL
[2020-11-15] MEDS: FAMOTIDINE 20MG/2ML VIAL IV SCH (08:40)
[2020-11-15] MEDS: DOCUSATE SODIUM SUGAR FREE 100MG/10ML UDC NG SCH ×3 (08:40→17:00)
[2020-11-15] MEDS: FOLIC ACID/VITAMIN B COMP W-C TABLET PO SCH (08:40)
[2020-11-15] MEDS: DEXAMETHASONE 4MG/ML 1ML VIAL IV SCH (08:40)
[2020-11-15] MEDS: FERROUS SULFATE 325MG TABLET PO SCH ×2 (08:40→18:07)
[2020-11-15] MEDS: METOPROLOL TARTRATE 50MG TABLET PO SCH ×2 (08:41→20:53)
[2020-11-15] MEDS: AMLODIPINE 5MG TABLET PO SCH ×2 (08:41→20:53)
[2020-11-15] MEDS: INSULIN GLARGINE UD 100 UNITS/ML SYR SUBCUT SCH ×2 (10:00→22:08)
[2020-11-15] MEDS: DILTIAZEM HCL 5MG/ML 5ML VIAL IV PRN (18:56)
[2020-11-15] MEDS: EPOETIN ALFA-EPBX 10,000 UNIT/ML VIAL SUBCUT SCH (20:38)
[2020-11-15] MEDS: SENNOSIDES/DOCUSATE SOD 8.6/50MG TABLET NG SCH (20:38)
[2020-11-15] MEDS: ATORVASTATIN CALCIUM 40MG TABLET PO SCH (20:39)
[2020-11-15] MEDS ORDERED: INSULIN GLARGINE UD 100 UNITS/ML SYR SUBCUT SCH (22:00)
[2020-11-16] VITALS (101 sets, daily range): BP systolic 76–185; BP diastolic 40–118
[2020-11-16] MEDS: BLOOD SUGAR DIAGNOSTIC STRIP TEST SCH ×4 (00:23→17:23)
[2020-11-16] MEDS: INSULIN LISPRO 100 UNITS/ML SUBCUT SCH ×4 (00:45→17:29)
[2020-11-16] MEDS: ACETAMINOPHEN 325MG TABLET PO PRN (00:47)
[2020-11-16] MEDS ORDERED: VANCOMYCIN 1250MG in DEXTROSE 5% WATER 250ML IV NR (01:00)
[2020-11-16] MEDS: IPRATROPIUM/ALBUTEROL 0.5-3(2.5)MG/3ML NEB HHN SCH ×4 (01:40→21:17)
[2020-11-16] MEDS: NITROGLYCERIN OINT 1GM/INCH UDPKT TD SCH ×4 (02:00→20:35)
[2020-11-16 05:19] LABS: HEMATOCRIT. 28.2 % (36.0-48.0); HEMOGLOBIN. 9.1 g/dL (12.0-16.0); MEAN CORPUSCULAR HEMOGLOBIN 28.5 pg (28.0-32.0); MEAN CORPUSCULAR VOLUME 87.9 fL (81.0-99.0); MEAN PLATELET VOLUME 9.9 fl (7.4-10.4); PLATELET 218 x1000/uL (130-400); RED BLOOD CELL COUNT 3.21 mill/uL (4.2-5.4); RED CELL DISTRIBUTION WIDTH 15.8 % (11.6-14.6)
[2020-11-16] MEDS: HYDRALAZINE HCL 50MG TABLET PO SCH (06:00)
[2020-11-16] MEDS: FUROSEMIDE 40MG/4ML VIAL IV SCH ×3 (06:00→17:28)
[2020-11-16] MEDS: CLONIDINE 0.1MG TABLET PO SCH ×4 (06:00→22:07)
[2020-11-16 06:44] LABS: PLATELET ESTIMATE NORMAL
[2020-11-16] MEDS: FOLIC ACID/VITAMIN B COMP W-C TABLET PO SCH (08:34)
[2020-11-16] MEDS: DEXAMETHASONE 4MG/ML 1ML VIAL IV SCH (08:34)
[2020-11-16] MEDS: AMLODIPINE 5MG TABLET PO SCH ×2 (08:34→20:34)
[2020-11-16] MEDS: FERROUS SULFATE 325MG TABLET PO SCH ×2 (08:34→17:28)
[2020-11-16] MEDS: DOCUSATE SODIUM SUGAR FREE 100MG/10ML UDC NG SCH ×2 (08:34→17:27)
[2020-11-16] MEDS: METOPROLOL TARTRATE 50MG TABLET PO SCH ×2 (08:35→20:35)
[2020-11-16] MEDS: INSULIN GLARGINE UD 100 UNITS/ML SYR SUBCUT SCH ×2 (08:52→22:06)
[2020-11-16] MEDS: FAMOTIDINE 20MG/2ML VIAL IV SCH (09:18)
[2020-11-16 09:29] LABS: BG BASE EXCESS -4.1 mmol/L (-2.0-2.0); BG CARBOXYHEMOGLOBIN 0.3 % (0.5-1.5); BG DEOXYHEMOGLOBIN 1.2 % (0.0-5.0); BG FRACTION INSPIRED OXYGEN 35; BG HCO3 ACT 19.2 mmol/L (22.0-26.0); BG METHEMOGLOBIN 0.2 % (0.0-1.5); BG OXYGEN SATURATION 98.8 % (92.0-98.5); BG OXYHEMOGLOBIN 98.3 % (94.0-97.0); BG PCO2 28.8 mmHg (35.0-45.0); BG PH 7.441 (7.350-7.450); BG PO2 152.7 mmHg (75.0-100.0); BG SAMPLE SITE LEFT RADIAL; BG TOTAL HEMOGLOBIN 9.6 g/dL (12.0-18.0); BG TOTAL RESPIRATORY RATE 20 b/min; BG VENT MODE VENT - AC
[2020-11-16] MEDS: HYDRALAZINE HCL 100MG TABLET PO SCH ×2 (14:10→22:06)
[2020-11-16] MEDS ORDERED: HEPARIN SODIUM 1,000 UNIT/1ML VIAL IV NR (15:15)
[2020-11-16] MEDS ORDERED: VANCOMYCIN 750 MG PREMIX 150 ML IV NR (18:00)
[2020-11-16] MEDS: ATORVASTATIN CALCIUM 40MG TABLET PO SCH (20:34)
[2020-11-16] MEDS: SENNOSIDES/DOCUSATE SOD 8.6/50MG TABLET NG SCH (20:34)
[2020-11-17] VITALS (91 sets, daily range): BP systolic 75–176; BP diastolic 45–82
[2020-11-17] MEDS: INSULIN LISPRO 100 UNITS/ML SUBCUT SCH ×4 (00:15→18:00)
[2020-11-17] MEDS: BLOOD SUGAR DIAGNOSTIC STRIP TEST SCH ×3 (00:15→12:53)
[2020-11-17] MEDS: IPRATROPIUM/ALBUTEROL 0.5-3(2.5)MG/3ML NEB HHN SCH ×3 (01:53→14:00)
[2020-11-17] MEDS: NITROGLYCERIN OINT 1GM/INCH UDPKT TD SCH ×4 (03:08→20:00)
[2020-11-17 06:11] LABS: HEMATOCRIT. 29.1 % (36.0-48.0); HEMOGLOBIN. 9.3 g/dL (12.0-16.0); MEAN CORPUSCULAR HEMOGLOBIN 28.8 pg (28.0-32.0); MEAN CORPUSCULAR VOLUME 89.5 fL (81.0-99.0); MEAN PLATELET VOLUME 10.8 fl (7.4-10.4); PLATELET 269 x1000/uL (130-400); RED BLOOD CELL COUNT 3.25 mill/uL (4.2-5.4); RED CELL DISTRIBUTION WIDTH 15.7 % (11.6-14.6)
[2020-11-17] MEDS: CLONIDINE 0.1MG TABLET PO SCH ×3 (06:45→21:52)
[2020-11-17] MEDS: HYDRALAZINE HCL 100MG TABLET PO SCH ×3 (06:45→21:52)
[2020-11-17] MEDS: FUROSEMIDE 40MG/4ML VIAL IV SCH (06:46)
[2020-11-17] MEDS: ACETAMINOPHEN 325MG TABLET PO PRN ×3 (08:32→12:49)
[2020-11-17] MEDS: DOCUSATE SODIUM SUGAR FREE 100MG/10ML UDC NG SCH ×2 (08:53→18:35)
[2020-11-17] MEDS: FERROUS SULFATE 325MG TABLET PO SCH ×2 (08:53→18:34)
[2020-11-17] MEDS: FOLIC ACID/VITAMIN B COMP W-C TABLET PO SCH (08:53)
[2020-11-17] MEDS: FAMOTIDINE 20MG/2ML VIAL IV SCH (08:54)
[2020-11-17 09:55] LABS: BG BASE EXCESS 2.2 mmol/L (-2.0-2.0); BG CARBOXYHEMOGLOBIN 0.3 % (0.5-1.5); BG DEOXYHEMOGLOBIN 1.8 % (0.0-5.0); BG FRACTION INSPIRED OXYGEN 35; BG HCO3 ACT 24.4 mmol/L (22.0-26.0); BG METHEMOGLOBIN 0.2 % (0.0-1.5); BG OXYGEN SATURATION 98.2 % (92.0-98.5); BG OXYHEMOGLOBIN 97.7 % (94.0-97.0); BG PCO2 29.8 mmHg (35.0-45.0); BG PH 7.531 (7.350-7.450); BG PO2 125.8 mmHg (75.0-100.0); BG SAMPLE SITE LEFT RADIAL; BG TOTAL HEMOGLOBIN 10.2 g/dL (12.0-18.0); BG TOTAL RESPIRATORY RATE 20 b/min; BG VENT MODE VENT - AC
[2020-11-17] MEDS: AMLODIPINE 5MG TABLET PO SCH ×2 (10:19→21:00)
[2020-11-17] MEDS: METOPROLOL TARTRATE 50MG TABLET PO SCH ×2 (10:21→21:00)
[2020-11-17] MEDS: INSULIN GLARGINE UD 100 UNITS/ML SYR SUBCUT SCH ×2 (10:23→21:51)
[2020-11-17 10:56] LABS: PLATELET ESTIMATE NORMAL
[2020-11-17] MEDS: SENNOSIDES/DOCUSATE SOD 8.6/50MG TABLET NG SCH (21:13)
[2020-11-17] MEDS: ATORVASTATIN CALCIUM 40MG TABLET PO SCH (21:13)
[2020-11-17] MEDS: EPOETIN ALFA-EPBX 10,000 UNIT/ML VIAL SUBCUT SCH (21:50)
[2020-11-18] VITALS (87 sets, daily range): BP systolic 112–184; BP diastolic 52–114
[2020-11-18] MEDS: BLOOD SUGAR DIAGNOSTIC STRIP TEST SCH ×4 (00:43→18:04)
[2020-11-18] MEDS: NITROGLYCERIN OINT 1GM/INCH UDPKT TD SCH ×4 (01:31→22:13)
[2020-11-18] MEDS: IPRATROPIUM/ALBUTEROL 0.5-3(2.5)MG/3ML NEB HHN SCH ×4 (02:46→20:31)
[2020-11-18 05:47] LABS: HEMATOCRIT. 29.2 % (36.0-48.0); HEMOGLOBIN. 9.5 g/dL (12.0-16.0); MEAN CORPUSCULAR HEMOGLOBIN 28.3 pg (28.0-32.0); MEAN CORPUSCULAR VOLUME 87.3 fL (81.0-99.0); MEAN PLATELET VOLUME 9.7 fl (7.4-10.4); PLATELET 198 x1000/uL (130-400); RED BLOOD CELL COUNT 3.35 mill/uL (4.2-5.4); RED CELL DISTRIBUTION WIDTH 15.6 % (11.6-14.6)
[2020-11-18] MEDS: FUROSEMIDE 40MG/4ML VIAL IV SCH ×2 (05:56→18:46)
[2020-11-18] MEDS: HYDRALAZINE HCL 100MG TABLET PO SCH ×3 (05:57→22:10)
[2020-11-18] MEDS: CLONIDINE 0.1MG TABLET PO SCH ×3 (05:57→22:09)
[2020-11-18] MEDS: FOLIC ACID/VITAMIN B COMP W-C TABLET PO SCH (08:55)
[2020-11-18] MEDS: FERROUS SULFATE 325MG TABLET PO SCH ×2 (08:55→17:15)
[2020-11-18] MEDS: DOCUSATE SODIUM SUGAR FREE 100MG/10ML UDC NG SCH ×2 (08:55→17:00)
[2020-11-18] MEDS: FAMOTIDINE 20MG/2ML VIAL IV SCH (08:55)
[2020-11-18] MEDS: AMLODIPINE 5MG TABLET PO SCH ×2 (08:55→22:09)
[2020-11-18] MEDS: METOPROLOL TARTRATE 50MG TABLET PO SCH ×2 (08:56→22:10)
[2020-11-18] MEDS: INSULIN GLARGINE UD 100 UNITS/ML SYR SUBCUT SCH (10:29)
[2020-11-18 11:42] LABS: NUCLEATED RED BLOOD CELLS 1 /100 WBC; PLATELET ESTIMATE NORMAL
[2020-11-18] MEDS: INSULIN LISPRO 100 UNITS/ML SUBCUT SCH ×3 (13:45→18:45)
[2020-11-18] MEDS: SENNOSIDES/DOCUSATE SOD 8.6/50MG TABLET NG SCH (21:00)
[2020-11-18] MEDS: ATORVASTATIN CALCIUM 40MG TABLET PO SCH (22:10)
[2020-11-19] VITALS (52 sets, daily range): BP systolic 111–177; BP diastolic 54–75
[2020-11-19] MEDS: INSULIN LISPRO 100 UNITS/ML SUBCUT SCH ×5 (00:23→23:03)
[2020-11-19] MEDS: INSULIN GLARGINE UD 100 UNITS/ML SYR SUBCUT SCH ×3 (00:23→22:59)
[2020-11-19] MEDS ORDERED: SODIUM BICARBONATE 8.4% 1 MEQ/ML 50ML SYR IV NR (01:45)
[2020-11-19] MEDS: NITROGLYCERIN OINT 1GM/INCH UDPKT TD SCH ×4 (02:06→23:02)
[2020-11-19] MEDS: IPRATROPIUM/ALBUTEROL 0.5-3(2.5)MG/3ML NEB HHN SCH ×3 (02:34→21:05)
[2020-11-19 04:06] LABS: OVA & PARASITE EXAM Final report (.)
[2020-11-19] MEDS: BLOOD SUGAR DIAGNOSTIC STRIP TEST SCH ×5 (05:16→23:03)
[2020-11-19] MEDS: CLONIDINE 0.1MG TABLET PO SCH ×3 (05:21→22:58)
[2020-11-19] MEDS: HYDRALAZINE HCL 100MG TABLET PO SCH ×4 (05:21→23:01)
[2020-11-19] MEDS: FUROSEMIDE 40MG/4ML VIAL IV SCH ×2 (05:22→18:05)
[2020-11-19 05:24] LABS: HEMATOCRIT. 28.1 % (36.0-48.0); HEMOGLOBIN. 9.1 g/dL (12.0-16.0); MEAN CORPUSCULAR HEMOGLOBIN 28.2 pg (28.0-32.0); MEAN CORPUSCULAR VOLUME 86.6 fL (81.0-99.0); MEAN PLATELET VOLUME 9.8 fl (7.4-10.4); PLATELET 182 x1000/uL (130-400); RED BLOOD CELL COUNT 3.25 mill/uL (4.2-5.4); RED CELL DISTRIBUTION WIDTH 15.9 % (11.6-14.6)
[2020-11-19] MEDS: METOPROLOL TARTRATE 50MG TABLET PO SCH ×3 (09:00→20:54)
[2020-11-19 10:17] LABS: NUCLEATED RED BLOOD CELLS 2 /100 WBC; PLATELET ESTIMATE NORMAL
[2020-11-19] MEDS: DOCUSATE SODIUM SUGAR FREE 100MG/10ML UDC NG SCH ×2 (11:29→18:05)
[2020-11-19] MEDS: AMLODIPINE 5MG TABLET PO SCH ×2 (11:30→20:54)
[2020-11-19] MEDS ORDERED: POTASSIUM CHLORIDE 20MEQ/PACKET PO NR (11:30)
[2020-11-19] MEDS: FOLIC ACID/VITAMIN B COMP W-C TABLET PO SCH (11:33)
[2020-11-19] MEDS: FERROUS SULFATE 325MG TABLET PO SCH ×2 (11:33→18:06)
[2020-11-19] MEDS: FAMOTIDINE 20MG/2ML VIAL IV SCH (11:34)
[2020-11-19 14:30] LABS: BG BASE EXCESS 0.2 mmol/L (-2.0-2.0); BG CARBOXYHEMOGLOBIN 0.3 % (0.5-1.5); BG DEOXYHEMOGLOBIN 2.8 % (0.0-5.0); BG FRACTION INSPIRED OXYGEN 35; BG HCO3 ACT 23.3 mmol/L (22.0-26.0); BG METHEMOGLOBIN 0.3 % (0.0-1.5); BG OXYGEN SATURATION 97.2 % (92.0-98.5); BG OXYHEMOGLOBIN 96.6 % (94.0-97.0); BG PCO2 32.1 mmHg (35.0-45.0); BG PH 7.479 (7.350-7.450); BG PO2 97.8 mmHg (75.0-100.0); BG SAMPLE SITE RIGHT RADIAL; BG TOTAL HEMOGLOBIN 10.2 g/dL (12.0-18.0); BG VENT MODE VENT - AC
[2020-11-19] MEDS ORDERED: LINEZOLID 600MG TABLET PO NR (18:00)
[2020-11-19] MEDS: SENNOSIDES/DOCUSATE SOD 8.6/50MG TABLET NG SCH (20:53)
[2020-11-19] MEDS: ATORVASTATIN CALCIUM 40MG TABLET PO SCH (20:54)
[2020-11-20] VITALS (17 sets, daily range): BP systolic 127–164; BP diastolic 49–78
[2020-11-20] MEDS: NITROGLYCERIN OINT 1GM/INCH UDPKT TD SCH ×4 (01:16→21:05)
[2020-11-20] MEDS: IPRATROPIUM/ALBUTEROL 0.5-3(2.5)MG/3ML NEB HHN SCH ×4 (03:13→21:15)
[2020-11-20] MEDS: BLOOD SUGAR DIAGNOSTIC STRIP TEST SCH ×2 (06:00→12:00)
[2020-11-20] MEDS: FUROSEMIDE 40MG/4ML VIAL IV SCH ×2 (06:10→18:28)
[2020-11-20] MEDS: HYDRALAZINE HCL 100MG TABLET PO SCH ×2 (06:10→15:21)
[2020-11-20] MEDS: CLONIDINE 0.1MG TABLET PO SCH ×3 (06:10→21:05)
[2020-11-20] MEDS: LINEZOLID 600MG TABLET PO SCH ×2 (06:13→18:28)
[2020-11-20] MEDS: INSULIN LISPRO 100 UNITS/ML SUBCUT SCH ×3 (06:16→18:36)
[2020-11-20] MEDS: AMLODIPINE 5MG TABLET PO SCH ×2 (09:44→21:05)
[2020-11-20] MEDS: DOCUSATE SODIUM SUGAR FREE 100MG/10ML UDC NG SCH (09:44)
[2020-11-20] MEDS: FERROUS SULFATE 325MG TABLET PO SCH ×2 (09:44→18:28)
[2020-11-20] MEDS: FOLIC ACID/VITAMIN B COMP W-C TABLET PO SCH (09:44)
[2020-11-20] MEDS: FAMOTIDINE 20MG/2ML VIAL IV SCH (09:46)
[2020-11-20] MEDS: METOPROLOL TARTRATE 50MG TABLET PO SCH (09:46)
[2020-11-20] MEDS: INSULIN GLARGINE UD 100 UNITS/ML SYR SUBCUT SCH ×2 (10:00→21:53)
[2020-11-20 15:42] LABS: HEMATOCRIT. 26.3 % (36.0-48.0); HEMOGLOBIN. 8.5 g/dL (12.0-16.0); MEAN CORPUSCULAR HEMOGLOBIN 28.3 pg (28.0-32.0); MEAN CORPUSCULAR VOLUME 87.6 fL (81.0-99.0); MEAN PLATELET VOLUME 9.6 fl (7.4-10.4); PLATELET 177 x1000/uL (130-400); RED CELL DISTRIBUTION WIDTH 15.7 % (11.6-14.6)
[2020-11-20 16:39] LABS: PLATELET ESTIMATE NORMAL
[2020-11-20] MEDS ORDERED: DOCUSATE SODIUM SUGAR FREE 100MG/10ML UDC NG PRN (17:15)
[2020-11-20] MEDS ORDERED: SENNOSIDES/DOCUSATE SOD 8.6/50MG TABLET NG PRN (17:15)
[2020-11-20] MEDS: ATORVASTATIN CALCIUM 40MG TABLET PO SCH (21:05)
[2020-11-20] MEDS: EPOETIN ALFA-EPBX 10,000 UNIT/ML VIAL SUBCUT SCH (21:06)
[2020-11-20] MEDS: ACETAMINOPHEN 325MG TABLET PO PRN (21:44)
[2020-11-21] VITALS (54 sets, daily range): BP systolic 108–171; BP diastolic 53–82
[2020-11-21] MEDS: BLOOD SUGAR DIAGNOSTIC STRIP TEST SCH ×4 (00:19→18:30)
[2020-11-21] MEDS: INSULIN LISPRO 100 UNITS/ML SUBCUT SCH ×4 (00:30→18:00)
[2020-11-21] MEDS: IPRATROPIUM/ALBUTEROL 0.5-3(2.5)MG/3ML NEB HHN SCH ×3 (00:45→21:03)
[2020-11-21] MEDS: NITROGLYCERIN OINT 1GM/INCH UDPKT TD SCH ×4 (02:43→21:26)
[2020-11-21] MEDS: LINEZOLID 600MG TABLET PO SCH ×2 (06:34→18:30)
[2020-11-21] MEDS: FUROSEMIDE 40MG/4ML VIAL IV SCH ×2 (06:34→18:29)
[2020-11-21] MEDS: HYDRALAZINE HCL 100MG TABLET PO SCH ×3 (06:34→21:25)
[2020-11-21] MEDS: CLONIDINE 0.1MG TABLET PO SCH ×3 (06:34→21:25)
[2020-11-21] MEDS: FOLIC ACID/VITAMIN B COMP W-C TABLET PO SCH (09:00)
[2020-11-21 09:09] LABS: BG BASE EXCESS -1.8 mmol/L (-2.0-2.0); BG CARBOXYHEMOGLOBIN 0.3 % (0.5-1.5); BG DEOXYHEMOGLOBIN 2.4 % (0.0-5.0); BG HCO3 ACT 21.9 mmol/L (22.0-26.0); BG METHEMOGLOBIN 0.2 % (0.0-1.5); BG OXYGEN SATURATION 97.6 % (92.0-98.5); BG OXYHEMOGLOBIN 97.1 % (94.0-97.0); BG PCO2 32.5 mmHg (35.0-45.0); BG PH 7.446 (7.350-7.450); BG SAMPLE SITE RIGHT RADIAL; BG TOTAL HEMOGLOBIN 8.7 g/dL (12.0-18.0); BG VENT MODE VENT - AC
[2020-11-21] MEDS: FAMOTIDINE 20MG/2ML VIAL IV SCH (10:27)
[2020-11-21] MEDS: AMLODIPINE 5MG TABLET PO SCH ×2 (10:28→21:26)
[2020-11-21] MEDS: METOPROLOL TARTRATE 50MG TABLET PO SCH ×2 (10:29→21:29)
[2020-11-21] MEDS: FERROUS SULFATE 325MG TABLET PO SCH ×2 (10:29→17:00)
[2020-11-21] MEDS: INSULIN GLARGINE UD 100 UNITS/ML SYR SUBCUT SCH ×2 (10:34→21:53)
[2020-11-21 10:46] LABS: HEMATOCRIT. 26.3 % (36.0-48.0); HEMOGLOBIN. 8.4 g/dL (12.0-16.0); MEAN CORPUSCULAR HEMOGLOBIN 28.1 pg (28.0-32.0); MEAN CORPUSCULAR VOLUME 87.9 fL (81.0-99.0); MEAN PLATELET VOLUME 9.6 fl (7.4-10.4); PLATELET 199 x1000/uL (130-400); RED BLOOD CELL COUNT 2.99 mill/uL (4.2-5.4); RED CELL DISTRIBUTION WIDTH 15.9 % (11.6-14.6)
[2020-11-21 12:20] LABS: BG BASE EXCESS -0.3 mmol/L (-2.0-2.0); BG CARBOXYHEMOGLOBIN 0.3 % (0.5-1.5); BG DEOXYHEMOGLOBIN 1.6 % (0.0-5.0); BG FRACTION INSPIRED OXYGEN 35; BG HCO3 ACT 23.1 mmol/L (22.0-26.0); BG METHEMOGLOBIN 0.3 % (0.0-1.5); BG OXYGEN SATURATION 98.4 % (92.0-98.5); BG OXYHEMOGLOBIN 97.8 % (94.0-97.0); BG PCO2 32.6 mmHg (35.0-45.0); BG PH 7.468 (7.350-7.450); BG PO2 120.1 mmHg (75.0-100.0); BG SAMPLE SITE RIGHT RADIAL; BG TOTAL RESPIRATORY RATE 18 b/min; BG VENT MODE VENT - AC
[2020-11-21 13:16] LABS: PLATELET ESTIMATE NORMAL
[2020-11-21] MEDS: ATORVASTATIN CALCIUM 40MG TABLET PO SCH (21:25)
[2020-11-22] VITALS (88 sets, daily range): BP systolic 81–181; BP diastolic 43–120
[2020-11-22] MEDS: INSULIN LISPRO 100 UNITS/ML SUBCUT SCH ×4 (01:13→18:00)
[2020-11-22] MEDS: NITROGLYCERIN OINT 1GM/INCH UDPKT TD SCH ×4 (01:14→20:55)
[2020-11-22] MEDS: IPRATROPIUM/ALBUTEROL 0.5-3(2.5)MG/3ML NEB HHN SCH ×4 (02:57→20:27)
[2020-11-22 05:20] LABS: BASOPHILS % 0.7 % (0.0-2.0); EOSINOPHILS % 1.1 % (0.0-5.0); HEMATOCRIT. 25.7 % (36.0-48.0); HEMOGLOBIN. 8.3 g/dL (12.0-16.0); LYMPHOCYTES % 8.3 % (20.0-50.0); MEAN CORPUSCULAR HEMOGLOBIN 28.6 pg (28.0-32.0); MEAN CORPUSCULAR VOLUME 88.1 fL (81.0-99.0); MEAN PLATELET VOLUME 9.4 fl (7.4-10.4); MONOCYTES % 7.8 % (2.0-8.0); NEUTROPHILS % 82.1 % (40.0-76.0); PLATELET 194 x1000/uL (130-400); RED BLOOD CELL COUNT 2.91 mill/uL (4.2-5.4)
[2020-11-22] MEDS: CLONIDINE 0.1MG TABLET PO SCH ×3 (06:51→20:57)
[2020-11-22] MEDS: FUROSEMIDE 40MG/4ML VIAL IV SCH ×2 (06:51→17:02)
[2020-11-22] MEDS: HYDRALAZINE HCL 100MG TABLET PO SCH ×3 (06:52→20:57)
[2020-11-22] MEDS: LINEZOLID 600MG TABLET PO SCH ×2 (06:52→17:02)
[2020-11-22] MEDS: BLOOD SUGAR DIAGNOSTIC STRIP TEST SCH ×4 (06:53→18:00)
[2020-11-22] MEDS: FAMOTIDINE 20MG/2ML VIAL IV SCH (09:15)
[2020-11-22] MEDS: FERROUS SULFATE 325MG TABLET PO SCH ×2 (09:15→16:48)
[2020-11-22] MEDS: FOLIC ACID/VITAMIN B COMP W-C TABLET PO SCH (09:15)
[2020-11-22] MEDS: METOPROLOL TARTRATE 50MG TABLET PO SCH ×2 (09:15→20:56)
[2020-11-22] MEDS: AMLODIPINE 5MG TABLET PO SCH ×2 (09:16→20:56)
[2020-11-22] MEDS: INSULIN GLARGINE UD 100 UNITS/ML SYR SUBCUT SCH ×2 (09:43→23:00)
[2020-11-22] MEDS ORDERED: MORPHINE SULFATE 2 MG/ML CPJ (NOT FOR IM USE) IV PRN (13:30)
[2020-11-22] MEDS: ATORVASTATIN CALCIUM 40MG TABLET PO SCH (20:55)
[2020-11-22] MEDS: EPOETIN ALFA-EPBX 10,000 UNIT/ML VIAL SUBCUT SCH (20:57)
[2020-11-22] MEDS: DEXTROSE 50% WATER 50ML SYRINGE IV PRN (23:45)
[2020-11-23] VITALS (57 sets, daily range): BP systolic 97–155; BP diastolic 37–99
[2020-11-23] MEDS: BLOOD SUGAR DIAGNOSTIC STRIP TEST SCH ×3 (00:40→12:00)
[2020-11-23] MEDS: INSULIN LISPRO 100 UNITS/ML SUBCUT SCH ×3 (00:48→12:00)
[2020-11-23] MEDS: IPRATROPIUM/ALBUTEROL 0.5-3(2.5)MG/3ML NEB HHN SCH ×3 (03:24→12:29)
[2020-11-23 04:58] LABS: HEMATOCRIT 25.2 % (36.0-48.0); HEMOGLOBIN 8.1 g/dL (12.0-16.0); MEAN CORPUSCULAR HEMOGLOBIN 28.3 pg (28.0-32.0); MEAN CORPUSCULAR VOLUME 87.9 fL (81.0-99.0); PLATELET 198 x1000/uL (130-400); RED BLOOD CELL COUNT 2.87 mill/uL (4.2-5.4)
[2020-11-23] MEDS: CLONIDINE 0.1MG TABLET PO SCH ×2 (06:00→13:23)
[2020-11-23] MEDS: HYDRALAZINE HCL 100MG TABLET PO SCH ×2 (06:00→13:23)
[2020-11-23] MEDS: NITROGLYCERIN OINT 1GM/INCH UDPKT TD SCH ×3 (06:10→13:23)
[2020-11-23] MEDS: FUROSEMIDE 40MG/4ML VIAL IV SCH (06:14)
[2020-11-23] MEDS: AMLODIPINE 5MG TABLET PO SCH (08:20)
[2020-11-23] MEDS: METOPROLOL TARTRATE 50MG TABLET PO SCH (08:20)
[2020-11-23] MEDS: FAMOTIDINE 20MG/2ML VIAL IV SCH (08:20)
[2020-11-23] MEDS: FERROUS SULFATE 325MG TABLET PO SCH (08:20)
[2020-11-23] MEDS: FOLIC ACID/VITAMIN B COMP W-C TABLET PO SCH (08:20)
[2020-11-23] MEDS: LINEZOLID 600MG TABLET PO SCH (08:21)
[2020-11-23] MEDS: INSULIN GLARGINE UD 100 UNITS/ML SYR SUBCUT SCH (10:26)
[2020-11-23 11:34] LABS: BG BASE EXCESS 0.2 mmol/L (-2.0-2.0); BG CARBOXYHEMOGLOBIN 0.3 % (0.5-1.5); BG DEOXYHEMOGLOBIN 1.6 % (0.0-5.0); BG FRACTION INSPIRED OXYGEN 35; BG HCO3 ACT 23.7 mmol/L (22.0-26.0); BG METHEMOGLOBIN 0.2 % (0.0-1.5); BG OXYGEN SATURATION 98.4 % (92.0-98.5); BG OXYHEMOGLOBIN 97.9 % (94.0-97.0); BG PCO2 33.8 mmHg (35.0-45.0); BG PH 7.464 (7.350-7.450); BG SAMPLE SITE RIGHT RADIAL; BG TOTAL HEMOGLOBIN 8.7 g/dL (12.0-18.0); BG TOTAL RESPIRATORY RATE 18 b/min; BG VENT MODE VENT - AC
[2020-11-23] MEDS ORDERED: INSULIN GLARGINE UD 100 UNITS/ML SYR SUBCUT SCH (22:00)
== END 2020-11-23 15:00 | DRG 870 ==
LOC: ER 11:02 → MICUSO 14:11 → EDBEDREQ 14:18 → EDBEDREQTM 14:18 → 7WST 11-02 15:39 → MICUSO 11-02 23:46
PROVIDERS: ADMIT Internal Medicine; ATTEND Internal Medicine
PROC: 05HY33Z Insertion of Infusion Device into Upper Vein, Percutaneous Approach (ICD-10-PCS; 2020-11-03)
PROC: B54MZZA Ultrasonography of Right Upper Extremity Veins, Guidance (ICD-10-PCS; 2020-11-03)
PROC: 5A1955Z Respiratory Ventilation, Greater than 96 Consecutive Hours (ICD-10-PCS; principal; 2020-11-04)
PROC: 0BH18EZ Insertion of Endotracheal Airway into Trachea, Via Natural or Artificial Opening Endoscopic (ICD-10-PCS; 2020-11-04)
PROC: 30233N1 Transfusion of Nonautologous Red Blood Cells into Peripheral Vein, Percutaneous Approach (ICD-10-PCS; 2020-11-06)
PROC: 02HV33Z Insertion of Infusion Device into Superior Vena Cava, Percutaneous Approach (ICD-10-PCS; 2020-11-06)
PROC: B548ZZA Ultrasonography of Superior Vena Cava, Guidance (ICD-10-PCS; 2020-11-06)
PROC: 5A1D70Z Performance of Urinary Filtration, Intermittent, Less than 6 Hours Per Day (ICD-10-PCS; 2020-11-06)
PROC: 5A1D70Z Performance of Urinary Filtration, Intermittent, Less than 6 Hours Per Day (ICD-10-PCS; 2020-11-09)
PROC: 5A1D70Z Performance of Urinary Filtration, Intermittent, Less than 6 Hours Per Day (ICD-10-PCS; 2020-11-10)
PROC: 5A1D70Z Performance of Urinary Filtration, Intermittent, Less than 6 Hours Per Day (ICD-10-PCS; 2020-11-12)
PROC: 5A1D70Z Performance of Urinary Filtration, Intermittent, Less than 6 Hours Per Day (ICD-10-PCS; 2020-11-14)
PROC: 5A1D70Z Performance of Urinary Filtration, Intermittent, Less than 6 Hours Per Day (ICD-10-PCS; 2020-11-15)
PROC: 5A1D70Z Performance of Urinary Filtration, Intermittent, Less than 6 Hours Per Day (ICD-10-PCS; 2020-11-21)
DX: A41.89 Other specified sepsis (principal); U07.1 COVID-19; J12.82 Pneumonia due to coronavirus disease 2019; G92 Toxic encephalopathy; I50.33 Acute on chronic diastolic (congestive) heart failure; I21.4 Non-ST elevation (NSTEMI) myocardial infarction; J96.01 Acute respiratory failure with hypoxia; I13.0 Hypertensive heart and chronic kidney disease with heart failure and stage 1 through stage 4 chronic kidney disease, or unspecified chronic kidney disease; E87.0 Hyperosmolality and hypernatremia; E87.2 Acidosis; N17.9 Acute kidney failure, unspecified; N13.6 Pyonephrosis; Z16.21 Resistance to vancomycin; D64.9 Anemia, unspecified; E11.22 Type 2 diabetes mellitus with diabetic chronic kidney disease; E66.9 Obesity, unspecified; E78.00 Pure hypercholesterolemia, unspecified; E78.5 Hyperlipidemia, unspecified; E87.5 Hyperkalemia; E11.649 Type 2 diabetes mellitus with hypoglycemia without coma; E11.65 Type 2 diabetes mellitus with hyperglycemia; F41.9 Anxiety disorder, unspecified; N18.30 Chronic kidney disease, stage 3 unspecified; R00.0 Tachycardia, unspecified; E87.6 Hypokalemia; I25.10 Atherosclerotic heart disease of native coronary artery without angina pectoris; I25.2 Old myocardial infarction; I27.20 Pulmonary hypertension, unspecified; K57.90 Diverticulosis of intestine, part unspecified, without perforation or abscess without bleeding; I44.7 Left bundle-branch block, unspecified; Z79.4 Long term (current) use of insulin; Z79.899 Other long term (current) drug therapy; Z87.442 Personal history of urinary calculi; Z90.49 Acquired absence of other specified parts of digestive tract; Z68.31 Body mass index [BMI] 31.0-31.9, adult; Z79.82 Long term (current) use of aspirin; Z87.440 Personal history of urinary (tract) infections; B95.2 Enterococcus as the cause of diseases classified elsewhere; B96.89 Other specified bacterial agents as the cause of diseases classified elsewhere
CPT/HCPCS: 36415; 36600; 70551; 71045; 76770; 76937; 80048; 80053; 80061; 80202; 81003; 82140; 82270; 82375; 82550; 82553; 82607; 82728; 82746; 82805; 82962; 83036; 83540; 83550; 83735; 83880; 84145; 84439; 84443; 84484; 85025; 85027; 85044; 85379; 85384; 86850; 86900; 86920; 87015; 87045; 87070; 87077; 87106; 87177; 87186; 87209; 87427; 87449; 87635; 89055; 93005; 93970; 94003; 94640; 94660; 99285; A6261; C1725; J0360; J0456; J0696; J0885; J1100; J1644; J1650; J1815; J1940; J2060; J2250; J2270; J2543; J3010; J3370; J3490; J7030; J7040; J7042; J7050; J7060; P9016

== ENCOUNTER 2021-04-09 17:18 | Emergency (ER) | payer MEDICARE, MEDICAID ==
[~2021-04-09] VITALS: Ht 165.1 cm; Wt 77.0 kg
[2021-04-09 21:13] LABS: BASOPHILS % 0.5 % (0.0-2.0); EOSINOPHILS % 0.7 % (0.0-5.0); HEMATOCRIT. 39.1 % (36.0-48.0); HEMOGLOBIN. 12.5 g/dL (12.0-16.0); LYMPHOCYTES % 14.5 % (20.0-50.0); MEAN CORPUSCULAR HEMOGLOBIN 29.6 pg (28.0-32.0); MEAN CORPUSCULAR VOLUME 92.7 fL (81.0-99.0); MEAN PLATELET VOLUME 7.8 fl (7.4-10.4); MONOCYTES % 7.4 % (2.0-8.0); NEUTROPHILS % 76.9 % (40.0-76.0); PLATELET 203 x1000/uL (130-400); RED BLOOD CELL COUNT 4.22 mill/uL (4.2-5.4); RED CELL DISTRIBUTION WIDTH 20.1 % (11.6-14.6)
[2021-04-09 21:14] LABS: CHLORIDE 101 mEq/L (98-107)
[2021-04-09] MEDS ORDERED: MORPHINE SULFATE 2 MG/ML CPJ (NOT FOR IM USE) IV ONE (21:15)
[2021-04-09] MEDS ORDERED: ACETAMINOPHEN 325MG TABLET PO ONE (21:45)
[2021-04-09] MEDS ORDERED: MAGNESIUM CITRATE 300ML SOLUTION PO ONE (22:15)
[2021-04-09 22:57] VITALS: BP 135/34
== END 2021-04-09 22:55 | disposition home or self-care (01) ==
LOC: ER 17:18
DX: R10.2 Pelvic and perineal pain (principal); K59.00 Constipation, unspecified; I12.0 Hypertensive chronic kidney disease with stage 5 chronic kidney disease or end stage renal disease; E11.22 Type 2 diabetes mellitus with diabetic chronic kidney disease; N18.6 End stage renal disease; E78.00 Pure hypercholesterolemia, unspecified; Z99.2 Dependence on renal dialysis; Z79.899 Other long term (current) drug therapy; Z87.442 Personal history of urinary calculi; Z90.49 Acquired absence of other specified parts of digestive tract
CPT/HCPCS: 36415; 74176; 80053; 85025; 93005; 99285; J2270

== ENCOUNTER 2021-08-02 20:55 | Emergency (ER) | payer MEDICARE, MEDICAID ==
[~2021-08-02] VITALS: Ht 160 cm; Wt 61.0 kg
[2021-08-02] MEDS ORDERED: ACETAMINOPHEN 325MG TABLET PO NR (23:00)
[2021-08-02 23:20] LABS: BASOPHILS % 0.5 % (0.0-2.0); HEMATOCRIT. 39.1 % (36.0-48.0); HEMOGLOBIN. 13.2 g/dL (12.0-16.0); LYMPHOCYTES % 19.1 % (20.0-50.0); MEAN CORPUSCULAR HEMOGLOBIN 32.3 pg (28.0-32.0); MEAN CORPUSCULAR VOLUME 95.4 fL (81.0-99.0); MEAN PLATELET VOLUME 7.8 fl (7.4-10.4); MONOCYTES % 6.5 % (2.0-8.0); NEUTROPHILS % 71.9 % (40.0-76.0); PLATELET 171 x1000/uL (130-400); RED BLOOD CELL COUNT 4.09 mill/uL (4.2-5.4); RED CELL DISTRIBUTION WIDTH 15.2 % (11.6-14.6)
[2021-08-02 23:28] LABS: ETHANOL BLOOD < 10 mg/dL
[2021-08-02 23:41] LABS: CLARITY URINE CLEAR (CLEAR); COLOR URINE YELLOW (YELLOW); KETONES URINE NEGATIVE (NEGATIVE); LEUKOCYTE ESTERASE URINE NEGATIVE (NEGATIVE); NITRITE URINE NEGATIVE (NEGATIVE); OCCULT BLOOD URINE NEGATIVE (NEGATIVE); PH URINE 8.5 (4.5-8.0); PROTEIN URINE 3+ (NEGATIVE); SPECIFIC GRAVITY URINE 1.005 (1.005-1.030); UROBILINOGEN URINE 0.2 E.U./dL (0.2-1.0)
[2021-08-03 00:06] LABS: CANNABINOID URINE SCREEN NEGATIVE (NEGATIVE); OPIATES URINE SCREEN NEGATIVE (NEGATIVE); PHENCYCLIDINE URINE SCREEN NEGATIVE (NEGATIVE)
[2021-08-03 00:07] LABS: *AMPHETAMINES SCREEN URINE NEGATIVE (NEGATIVE); *BARBITURATES SCREEN URINE NEGATIVE (NEGATIVE); *BENZODIAZEPINES SCREEN URINE NEGATIVE (NEGATIVE); *COCAINE SCREEN URINE NEGATIVE (NEGATIVE); METHADONE URINE SCREEN NEGATIVE (NEGATIVE)
[2021-08-03 01:38] VITALS: BP 154/60
== END 2021-08-03 01:38 | disposition home or self-care (01) ==
LOC: ER 20:55
DX: N28.9 Disorder of kidney and ureter, unspecified (principal); I44.7 Left bundle-branch block, unspecified; E11.9 Type 2 diabetes mellitus without complications; I12.0 Hypertensive chronic kidney disease with stage 5 chronic kidney disease or end stage renal disease; N18.6 End stage renal disease; Z99.2 Dependence on renal dialysis; Z90.49 Acquired absence of other specified parts of digestive tract; Z79.82 Long term (current) use of aspirin; Z79.4 Long term (current) use of insulin
CPT/HCPCS: 36415; 80048; 80305; 80320; 81003; 82962; 84484; 85025; 93005; 99284; G0480